=== PATIENT | male | born 1955 | race Caucasian/White ===

== ENCOUNTER → 2016-09-28 | Outpatient (CLI) | payer OTHER ==
--- NOTE | 2016-09-28 08:08 | CT ---
EXAMINATION TYPE: CT chest wo con DATE OF EXAM: 09/28/2016 7:21 AM COMPARISON: 03/19/2015 and 09/11/2014 HISTORY: 61-year-old male with SOB and Cough TECHNIQUE: Contiguous axial scanning of the chest without IV contrast. Coronal and sagittal reconstru ctions performed. CT DLP: 269.2 mGycm Automated exposure control for dose reduction was used. FINDINGS: Heart is normal size without pericardial effusion. Aorta is normal caliber with conventional arch vessel branching anatomy. Scattered nonenlarged mediastinal lymph nodes measuring up to 8 mm and are unchanged. Mild bilateral gynecomastia is noted. There is redemonstration of bullous emphysema with right apical pleural parenchymal scarring and olive tional irregular pulmonary scarring along the right upper to midlung with associated calcification, u nchanged from 09/11/2014. Also unchanged is the 3 mm right middle lobe pulmonary nodule compatible with a benign etiology. Mild diffuse bronchial wall thickening is noted. Small hiatal hernia. Visualized upper abdomen otherwise shows no gross abnormality. Bones: No osseous destructive process. IMPRESSION: 1. COPD WITH MARKED BULLOUS EMPHYSEMA REDEMONSTRATED. 2. PARTIALLY CALCIFIED SCARRING ALONG THE RIGHT UPPER TO MIDLUNG IS UNCHANGED FOR 2 YEARS IS THE 3 MM RIGHT MIDDLE LOBE PULMONARY NODULE SUGGESTING A BENIGN ETIOLOGY. 3. NO ACUTE PULMONARY PROCESS SEEN.
== END | disposition home or self-care (01) ==
LOC: RADCTMAIN 07:04
PROVIDERS: ATTEND Internal Medicine Pulmonary Disease
DX: J43.9 Emphysema, unspecified (principal); R91.1 Solitary pulmonary nodule
CPT/HCPCS: 71250

== ENCOUNTER → 2018-06-21 | Outpatient (CLI) | payer OTHER ==
--- NOTE | 2018-06-21 15:59 | XR ---
EXAMINATION TYPE: XR chest 2V DATE OF EXAM: 06/21/2018 COMPARISON: Prior chest CT 09/28/2016 HISTORY: Cough and shortness of breath TECHNIQUE: Frontal and lateral views of the chest are obtained. FINDINGS: Extensive emphysematous changes are present, there is apical scarring on the right. Eventr ation of the diaphragm is noted. Heart is small. No evident pneumothorax or pleural effusion. Pulmona ry vascularity and nury are within normal limits. IMPRESSION: Emphysema, no acute abnormalities evident.
== END ==
LOC: RADXRMAIN 09:58
PROVIDERS: ATTEND Internal Medicine Pulmonary Disease
DX: J43.9 Emphysema, unspecified (principal)
CPT/HCPCS: 71046

== ENCOUNTER → 2018-08-02 | Outpatient (CLI) | payer OTHER ==
--- NOTE | 2018-08-02 08:56 | CT ---
EXAMINATION TYPE: CT chest wo con DATE OF EXAM: 08/02/2018 COMPARISON: September 28, 2016 HISTORY: Shortness of breath CT DLP: [address] of the chest was performed with lung and mediastinal window settings submitted. The la ck of contrast limits evaluation of the vascular, mediastinal and parenchymal structures including th e upper abdomen. LUNGS: There is redemonstration of bullous emphysema with right apical pleural parenchymal scarring a nd additional irregular pulmonary scarring along the right upper to midlung with associated calcifica tion, unchanged from 09/11/2014. Also unchanged is the 3 mm right middle lobe pulmonary nodule compatib le with a benign etiology. Mild diffuse bronchial wall thickening is noted. MEDIASTINUM/ANT: Thoracic aorta is of normal caliber with limited evaluation given lack of contrast . The heart is not enlarged. No evidence for mediastinal mass. No lymph nodes greater than 1cm. UPPER ABDOMEN: No significant abnormality is seen. OTHER: No significant other abnormality. IMPRESSION: 1. Severe bullous emphysema with COPD. 2. Calcified scarring right upper lobe midlung unchanged with stable pulmonary nodularity. No acute p rocess seen.
== END | disposition home or self-care (01) ==
LOC: RADCTMAIN 08:27
PROVIDERS: ATTEND Internal Medicine Pulmonary Disease
DX: J43.9 Emphysema, unspecified (principal); J98.4 Other disorders of lung
CPT/HCPCS: 71250

== ENCOUNTER 2018-11-06 11:06 | Inpatient (IN) | payer OTHER ==
[2018-11-06] MEDS ORDERED: RX INFO: IV CONTRAST WAS GIVEN 1 EACH MISC MISCELLANE PRN (16:15)
[2018-11-06] MEDS: methylPREDNISolone SOD SUCCI 125 MG/2 ML VIAL IV SCH ×2 (16:34→23:21)
[2018-11-06] MEDS: SODIUM CHLORIDE 0.9% 1,000 ML IV SCH (17:12)
[2018-11-06] MEDS ORDERED: IPRATROPIUM-ALBUTEROL 3 ML NEB INHALATION PRN (17:49)
--- NOTE | 2018-11-06 17:53 | P.CNPUL ---
History of Present Illness Consult date: 11/06/18 Reason for consult: dyspnea, COPD Chief complaint: shortness of breath History of present illness: This is a 63-year-old gentleman who was a direct admit from Dr. Hein's office complaining of shortness of breath, feeling tired, feeling like his heart is racing. History is difficult to obtain from the patient. He appears depressed and states that he feels like there is nothing that can be done for him. He is asking if there is anything that he can do to make his breathing better. We discussed nebulizer treatments as well as evaluation outpatient for lung volume reduction surgery. The patient states "that is all too much for my body." He is also upset because a computed tomography scan is ordered and he states again "it is too much for my body." The patient does have a Ventolin inhaler that he states he uses multiple times throughout the day. He states he knows using it that much is not good for him. It is unclear if he is using any other inhalers at this time. He keeps repeating "it is too much for my body." The patient is a current every day smoker. He had a computed tomography scan done in 2018 which shows severe bullous emphysema. The patient's last pulmonary function test was done in 2016. It showed severe COPD with an FEV1 51% of predicted. The patient has declined repeat testing since that time. Influenza is negative. The patient is afebrile. O2 saturation is 96% on room air. Review of Systems All systems: negative Past Medical History Past Medical History: COPD History of Any Multi-Drug Resistant Organisms: None Reported Past Surgical History: No Surgical Hx Reported Past Anesthesia/Blood Transfusion Reactions: No Reported Reaction Past Psychological History: No Psychological Hx Reported Smoking Status: Current every day smoker Past Alcohol Use History: None Reported Past Drug Use History: None Reported - Past Family History Mother Family Medical History: Myocardial Infarction (MA) Medications and Allergies Home Medications Medication Instructions Recorded Confirmed Type Albuterol Inhaler [Ventolin Hfa 2 puff INHALATION RT-TID 11/06/18 11/06/18 History Inhaler] Atenolol [Tenormin] 50 mg PO DAILY 11/06/18 11/06/18 History Allergies Allergy/AdvReac Type Severity Reaction Status Date / Time No Known Allergies Allergy Verified 11/06/18 14:58 Physical Exam Osteopathic Statement: *. No significant issues noted on an osteopathic structural exam other than those noted in the History and Physical/Consult. Vitals: Vital Signs Temp Pulse Resp BP Pulse Ox 11/06/18 13:12 97.5 F L 87 20 126/84 96 Intake and Output 11/06/18 11/06/18 11/06/18 06:59 14:59 22:59 Other: Weight 71.668 kg Gen.: Patient is alert and oriented 3, no acute distress Cardiovascular: Regular rate and rhythm, S1/S2 Lungs: Diminished breath sounds bilaterally Abdomen: Soft nontender nondistended positive bowel sounds Extremities: No edema Assessment and Plan Assessment: Acute exacerbation of COPD, severe, FEV 1 51% of predicted Severe bullous emphysema Active tobacco abuse History of asbestos exposure Right upper lobe calcified scaring Pulmonary nodules which have been stable O2 to maintain saturation greater than or equal to 90% Pulmicort, Perforomist, brandi santillan Singulair Mucinex IgE/HP/allergy/A1AT Incentive spirometry and pulmonary hygiene Smoking cessation is highly recommended Outpatient pulmonary function test is recommended, patient may be a candidate for LVRS or transplant if he quits smoking Steroid taper CT of the chest Monitor labs Home O2 assessment prior to discharge Nocturnal oximetry tonight GI and DVT prophylaxis Thank you for this consultation we'll continue to follow along
[2018-11-06 18:05] LABS: Basophils # (A) 0.1 k/uL (0-0.2); Basophils % (A) 1 %; Eosinophils # (A) 0.2 k/uL (0-0.7); Eosinophils % (A) 3 %; HCT 48.7 % (39.0-53.0); HGB 15.6 gm/dL (13.0-17.5); Lymphocytes # (A) 1.7 k/uL (1.0-4.8); Lymphocytes % (A) 25 %; MCH 29.1 pg (25.0-35.0); MCV 90.8 fL (80.0-100.0); Mean Platelet Volume 7.5; Monocytes # (A) 0.4 k/uL (0-1.0); Monocytes % (A) 7 %; Neutrophils # (A) 4.1 k/uL (1.3-7.7); Neutrophils % (A) 62 %; Platelet Count 260 k/uL (150-450); RBC 5.37 m/uL (4.30-5.90); RDW 12.4 % (11.5-15.5); WBC 6.6 k/uL (3.8-10.6)
[2018-11-06 18:07] LABS: Albumin 3.9 g/dL (3.5-5.0); Calcium 9.5 mg/dL (8.4-10.2); Potassium 4.6 mmol/L (3.5-5.1); Total Bilirubin 0.6 mg/dL (0.2-1.3); Total Protein 6.8 g/dL (6.3-8.2)
[2018-11-06] MEDS: HEPARIN SODIUM,PORCINE 5,000 UNIT/ML 1 ML VIAL SQ SCH ×2 (18:15→23:21)
--- NOTE | 2018-11-06 19:06 | CT ---
EXAMINATION TYPE: CT chest w con DATE OF EXAM: 11/06/2018 COMPARISON: CT chest August 02, 2018 HISTORY: COPD and difficulty breathing. CT DLP: 217.8 mGycm. Automated Exposure Control for Dose Reduction was Utilized. TECHNIQUE: CT scan of the thorax is performed following with IV Contrast, patient injected with 100m l mL of Isovue 300. FINDINGS: LUNGS: Advanced emphysematous change most prominent in the lung apices is redemonstrated with large b jennifer present. There is right upper lung linear scarring again seen. No suspicious new consolidation o r groundglass opacity. No pleural effusion or pneumothorax. No suspicious nodules or masses. MEDIASTINUM: There are no greater than 1 cm hilar or mediastinal lymph nodes. Prominent but subcentim eter AP window lymph nodes axial image 27 are stable. No cardiomegaly or pericardial effusion is se en. Slight right-sided volume loss with mediastinal shift remains present. OTHER: Bilateral subareolar gynecomastia is again seen. Please refer to same day CT abdomen report fo r complete details and upper abdomen IMPRESSION: Moderate to advanced underlying emphysematous change without suspicious acute pulmonary p rocess. No significant change from recent CT.
--- NOTE | 2018-11-06 19:10 | CT ---
EXAMINATION TYPE: CT abdomen pelvis wo/w con DATE OF EXAM: 11/06/2018 COMPARISON: PET CT August 18, 2013 HISTORY: Abdominal pain. CT DLP: 837.3 mGycm, Automated Exposure Control for Dose Reduction was Utilized. CONTRAST: CT scan of the abdomen and pelvis is performed without oral and without and with IV Contrast, patient injected with 100ml mL of Isovue 300. FINDINGS: LUNG BASES: Please refer to same-day CT chest report. LIVER/GB: No significant abnormality is appreciated. PANCREAS: No significant abnormality is seen. SPLEEN: No significant abnormality is seen. ADRENALS: No significant abnormality is seen. KIDNEYS: No renal calculi on noncontrast CT. Postcontrast CT shows symmetric cortical medullary upta ke and excretion without hydronephrosis seen bilaterally. No intraluminal calculus in poorly distende d bladder BOWEL: Evaluation bowel is suboptimal secondary to lack of enteric contrast. There is no suspicious s mall or large bowel dilatation. Normal-appearing appendix is seen inferiorly from cecum. Some scatter ed diverticula in the left and sigmoid colon are present. No CT evidence for acute diverticulitis. PROSTATE/SEMINAL VESICLES: Mildly enlarged prostate gland consistent with BPH bulges on bladder base. Central calcifications are present. LYMPH NODES: No greater than 1cm abdominal or pelvic lymph nodes are appreciated. OSSEOUS STRUCTURES: Demineralization is present. There is mild disc space narrowing with vacuum disc phenomenon L3-L4 level. There is facet arthropathy lower lumbar levels. OTHER: There is mild to moderate calcific plaque of the aorta extending into branch vessels. There ar e small fat-containing right inguinal hernia coronal image 22. IMPRESSION: No significant acute finding is seen to account for patient's clinical symptoms on this study. No bowel obstruction is present.
[2018-11-06] MEDS: FAMOTIDINE 20 MG TAB PO SCH (20:07)
[2018-11-06] MEDS: MONTELUKAST 10 MG TAB PO SCH (20:08)
[2018-11-06] MEDS: guaiFENesin 600 MG TABLET.ER PO SCH (20:08)
[2018-11-06] MEDS: IPRATROPIUM-ALBUTEROL 3 ML NEB INHALATION SCH ×3 (20:58→21:09)
[2018-11-06] MEDS: BUDESONIDE 0.5 MG/2 ML NEBU INHALATION SCH (20:58)
[2018-11-06] MEDS: FORMOTEROL FUMARATE 20 MCG/2 ML NEBU INHALATION SCH (21:13)
[2018-11-07 00:06] LABS: Immunoglobulin E 40.6 IU/mL (0.00-114.00)
[2018-11-07 07:47] LABS: Basophils % (A) 0 %; Eosinophils % (A) 0 %; HCT 43.6 % (39.0-53.0); HGB 13.9 gm/dL (13.0-17.5); Lymphocytes # (A) 0.8 k/uL (1.0-4.8); Lymphocytes % (A) 10 %; MCH 28.7 pg (25.0-35.0); MCHC 31.9 g/dL (31.0-37.0); Monocytes # (A) 0.4 k/uL (0-1.0); Monocytes % (A) 6 %; Neutrophils # (A) 6.4 k/uL (1.3-7.7); Neutrophils % (A) 83 %; Platelet Count 244 k/uL (150-450); RBC 4.85 m/uL (4.30-5.90); RDW 12.3 % (11.5-15.5); WBC 7.7 k/uL (3.8-10.6)
[2018-11-07 07:56] LABS: Albumin 3.4 g/dL (3.5-5.0); Calcium 9.3 mg/dL (8.4-10.2); Potassium 4.7 mmol/L (3.5-5.1); Total Bilirubin 0.6 mg/dL (0.2-1.3)
[2018-11-07] MEDS: IPRATROPIUM-ALBUTEROL 3 ML NEB INHALATION SCH ×3 (08:16→19:22)
[2018-11-07] MEDS: FORMOTEROL FUMARATE 20 MCG/2 ML NEBU INHALATION SCH ×2 (08:16→19:22)
[2018-11-07] MEDS: BUDESONIDE 0.5 MG/2 ML NEBU INHALATION SCH ×2 (08:16→19:22)
[2018-11-07] MEDS: guaiFENesin 600 MG TABLET.ER PO SCH ×2 (08:51→23:59)
[2018-11-07] MEDS: ATENOLOL 50 MG TAB PO SCH (08:51)
[2018-11-07] MEDS: FAMOTIDINE 20 MG TAB PO SCH (08:51)
[2018-11-07] MEDS: methylPREDNISolone SOD SUCCI 125 MG/2 ML VIAL IV SCH ×2 (08:51→15:54)
[2018-11-07] MEDS: HEPARIN SODIUM,PORCINE 5,000 UNIT/ML 1 ML VIAL SQ SCH ×2 (08:52→15:53)
[2018-11-07] MEDS: PANTOPRAZOLE 40 MG TABLET PO SCH (08:55)
[2018-11-07] MEDS: SODIUM CHLORIDE 0.9% 1,000 ML IV SCH ×2 (08:56→22:03)
[2018-11-07 10:40] VITALS: BMI 22.3
[2018-11-07] MEDS ORDERED: PEG 3350-NA SULF,BICARB,CL/KCL 4,000 ML BOTTLE PO ONE (12:21)
--- NOTE | 2018-11-07 13:17 | P.GSCN ---
History of Present Illness Consult date: 11/07/18 Reason for Consult: Nausea, anorexia, requesting EGD colonoscopy Requesting physician: Og Hein History of present illness: CHIEF COMPLAINT: Nausea, anorexia, EGD/colonoscopy HISTORY OF PRESENT ILLNESS: 63-year-old male who was directly admitted from Dr. Hein's office yesterday secondary to COPD. Dr. Hein consulted general surgery for request to have EGD/colonoscopy completed. Patient examined at the bedside. Denies heartburn or epigastric pain. He currently denies abdominal pain. He does report that he was having some generalized abdominal pain a few days ago, but it resolved after he had a bowel movement. Denies n ausea or vomiting. Denies diarrhea or constipation. Patient states for the last 10 days or so he hasn't been eating except a few bites here and there. Patient states "I just didn't feel like. I cant believe I took this healthy body and ruined it by smoking". Patient appears very depressed about his overall health and states "this is just my luck that I'm ending up this way'. Patient denies previous history of EGD or colonoscopy. PAST MEDICAL HISTORY: See list. PAST SURGICAL HISTORY: See list. SOCIAL HISTORY: No illicit drug use. REVIEW OF SYSTEMS: CONSTITUTIONAL: Denies fever or chills. HEENT: Denies blurred vision, vision changes, or eye pain. Denies hemoptysis CARDIOVASCULAR: Denies chest pain or pressure. RESPIRATORY: Reports shortness of breath GASTROINTESTINAL: Refer to HPI for pertinent findings HEMATOLOGIC: Denies bleeding disorders. GENITOURINARY: Denies any blood in urine. SKIN: Denies pruitis. Denies rash. PHYSICAL EXAM: VITAL SIGNS: Reviewed. GENERAL: Well-developed in no acute distress. HEENT: No sclera icterus. Extraocular movements grossly intact. Moist buccal mucosa. Head is atraumatic, normocephalic. ABDOMEN: Soft. Nondistended. Nontender. NEUROLOGIC: Alert and oriented. Cranial nerves II through XII grossly intact. Appears depressed. IMAGING: CT abdomen and pelvis: No significant acute finding is seen. No bowel obstruction. Some scattered diverticula in the left and sigmoid colon are present. No evidence of acute diverticulitis. ASSESSMENT: 1. Isolated episode of abdominal pain, resolved with bowel movement 2. Anorexia, patient reports he stopped eating about 10 days ago PLAN: Clear liquid diet this afternoon. NPO after midnight Patient to undergo EGD/colonoscopy tomorrow with Dr. Arce Recommend further evaluation of depression. Will defer to medicine. The above dictated assessment and findings were discussed with Dr. Arce. The impression and plan of care have been directed as dictated. Penny Kruse, nurse practitioner, acting as a scribe for Dr. Arce. Past Medical History Past Medical History: COPD History of Any Multi-Drug Resistant Organisms: None Reported Past Surgical History: No Surgical Hx Reported Past Anesthesia/Blood Transfusion Reactions: No Reported Reaction Past Psychological History: No Psychological Hx Reported Smoking Status: Current every day smoker Past Alcohol Use History: None Reported Past Drug Use History: None Reported - Past Family History Mother Family Medical History: Myocardial Infarction (MA) Medications and Allergies Home Medications Medication Instructions Recorded Confirmed Type Albuterol Inhaler [Ventolin Hfa 2 puff INHALATION RT-TID 11/06/18 11/06/18 History Inhaler] Atenolol [Tenormin] 50 mg PO DAILY 11/06/18 11/06/18 History Allergies Allergy/AdvReac Type Severity Reaction Status Date / Time No Known Allergies Allergy Verified 11/06/18 14:58 Surgical - Exam Vital Signs Temp Pulse Resp BP Pulse Ox 97.5 F L 87 20 126/84 96 11/06/18 13:12 11/06/18 13:12 11/06/18 13:12 11/06/18 13:12 11/06/18 13:12 Results - Labs 11/07/18 07:21 11/07/18 07:21 Abnormal Lab Results - Last 24 Hours (Table) 11/06/18 11/07/18 11/07/18 Range/Units 17:22 07:21 07:21 Lymphocytes # 0.8 L (1.0-4.8) k/uL Chloride 108 H (98-107) mmol/L Creatinine 1.39 H (0.66-1.25) mg/dL Glucose 111 H (74-99) mg/dL AST 14 L (17-59) U/L ALT 17 L (21-72) U/L Total Protein 6.0 L (6.3-8.2) g/dL Albumin 3.4 L (3.5-5.0) g/dL Diabetes panel 11/06/18 11/07/18 Range/Units 17:22 07:21 Sodium 141 138 (137-145) mmol/L Potassium 4.6 4.7 (3.5-5.1) mmol/L Chloride 104 108 H (98-107) mmol/L Carbon Dioxide 27 22 (22-30) mmol/L BUN 20 18 (9-20) mg/dL Creatinine 1.39 H 1.06 (0.66-1.25) mg/dL Glucose 97 111 H (74-99) mg/dL Calcium 9.5 9.3 (8.4-10.2) mg/dL AST 18 14 L (17-59) U/L ALT 17 L 27 (21-72) U/L Alkaline Phosphatase 92 86 (38-126) U/L Total Protein 6.8 6.0 L (6.3-8.2) g/dL Albumin 3.9 3.4 L (3.5-5.0) g/dL Calcium panel 11/06/18 11/07/18 Range/Units 17:22 07:21 Calcium 9.5 9.3 (8.4-10.2) mg/dL Albumin 3.9 3.4 L (3.5-5.0) g/dL Pituitary panel 11/06/18 11/07/18 Range/Units 17:22 07:21 Sodium 141 138 (137-145) mmol/L Potassium 4.6 4.7 (3.5-5.1) mmol/L Chloride 104 108 H (98-107) mmol/L Carbon Dioxide 27 22 (22-30) mmol/L BUN 20 18 (9-20) mg/dL Creatinine 1.39 H 1.06 (0.66-1.25) mg/dL Glucose 97 111 H (74-99) mg/dL Calcium 9.5 9.3 (8.4-10.2) mg/dL Adrenal panel 11/06/18 11/07/18 Range/Units 17:22 07:21 Sodium 141 138 (137-145) mmol/L Potassium 4.6 4.7 (3.5-5.1) mmol/L Chloride 104 108 H (98-107) mmol/L Carbon Dioxide 27 22 (22-30) mmol/L BUN 20 18 (9-20) mg/dL Creatinine 1.39 H 1.06 (0.66-1.25) mg/dL Glucose 97 111 H (74-99) mg/dL Calcium 9.5 9.3 (8.4-10.2) mg/dL Total Bilirubin 0.6 0.6 (0.2-1.3) mg/dL AST 18 14 L (17-59) U/L ALT 17 L 27 (21-72) U/L Alkaline Phosphatase 92 86 (38-126) U/L Total Protein 6.8 6.0 L (6.3-8.2) g/dL Albumin 3.9 3.4 L (3.5-5.0) g/dL
--- NOTE | 2018-11-07 16:10 | PN ---
PROGRESS NOTE DATE OF SERVICE: 11/07/2018 This patient has been hemodynamically stable. He is less short of breath. On physical examination, blood pressure is 124/74, respiratory rate of 20, pulse rate 70, temperature 97.7. HEENT is unremarkable. Chest reveals prolonged exhalation. Cardiovascular system is in S1, S2. Abdomen is soft. There is no edema. IMPRESSION AT THIS TIME: 1. Acute exacerbation of chronic obstructive pulmonary disease with bullous emphysema. 2. Right upper lobe calcified scarring. 3. Abdominal pain, for which he is to undergo esophagogastroduodenoscopy and colonoscopy. Increase his activity level. Continue him on his current medications, which were reviewed. MMODL / IJN: [id number] /
--- NOTE | 2018-11-07 17:33 | HP ---
HISTORY AND PHYSICAL CHIEF COMPLAINT: 63-year-old who was admitted to the hospital with shortness of breath, lightheaded, dizziness, heart racing, near-syncope, and severe amount of weight loss over the past 3- 4 months, about 15 pounds. He says it is too much for his body, cannot live anymore. He is unable to eat any food, to keep any food down. He has got anorexic anorexia type symptoms and CT scan shows severe bullous emphysema. PAST MEDICAL HISTORY: Past medical history of COPD. SOCIAL HISTORY: Current everyday smoker. MEDICATIONS: Home medicines are Tenormin and Ritalin. ALLERGIES: No known drug allergies. PHYSICAL EXAMINATION: VITAL SIGNS: Vital signs - temp 97.5, pulse 80 to 87, respiratory 18-25, blood pressure 126/84, oxygen 96% on room air. Cardiac: Regular rate and rhythm. Neurologic: Alert and orient x3. PSYCH: Fair mood and affect. GI soft. Hematology negative Homans. ASSESSMENT: 1. Chronic obstructive pulmonary disease exacerbation. 2. Bullous emphysema. 3. Nicotine addiction. 4. History of asbestos exposure. 5. Acute weight loss. 6. Pulmonary nodules. Treated for COPD exacerbation. Get colonoscopy, EGD, CT of the abdomen, and chest has been done. MMODL / IJN: [id number] /
[2018-11-07] MEDS: MONTELUKAST 10 MG TAB PO SCH (23:59)
[2018-11-08] MEDS: HEPARIN SODIUM,PORCINE 5,000 UNIT/ML 1 ML VIAL SQ SCH ×3 (00:03→16:09)
[2018-11-08] MEDS ORDERED: LACTATED RINGERS 1,000 ML IV SCH (05:45)
[2018-11-08] MEDS: methylPREDNISolone SOD SUCCI 125 MG/2 ML VIAL IV SCH ×3 (07:49→16:09)
[2018-11-08] MEDS: SODIUM CHLORIDE 0.9% 1,000 ML IV SCH (07:51)
[2018-11-08] MEDS: IPRATROPIUM-ALBUTEROL 3 ML NEB INHALATION SCH ×2 (08:43→12:52)
[2018-11-08] MEDS: FORMOTEROL FUMARATE 20 MCG/2 ML NEBU INHALATION SCH (08:43)
[2018-11-08] MEDS: BUDESONIDE 0.5 MG/2 ML NEBU INHALATION SCH (08:43)
[2018-11-08] MEDS: ATENOLOL 50 MG TAB PO SCH (08:59)
[2018-11-08] MEDS: PANTOPRAZOLE 40 MG TABLET PO SCH (08:59)
[2018-11-08] MEDS: guaiFENesin 600 MG TABLET.ER PO SCH (08:59)
[2018-11-08 11:47] VITALS: BP 135/86; PULSE 60; TEMP 98.1
--- NOTE | 2018-11-08 12:11 | P.PN ---
Subjective Progress Note Date: 11/08/18 11/08/2017: Patient seen and examined. Patient is ambulating from the bathroom to his bed. He does have conversational dyspnea. He states he is not doing well and feels like he is going to . He has a lot of anxiety about his EGD and colonoscopy today. He states he is not sure he will with through it because he really can't breathe. The patient is currently 95% on room air. We do discuss outpatient pulmonary rehab. Objective - Vital Signs Vital signs: Vital Signs Temp 98.1 F 11/08/18 11:46 Pulse 60 11/08/18 11:46 Resp 17 11/08/18 11:46 BP 135/86 11/08/18 11:46 Pulse Ox 95 11/08/18 11:46 Intake & Output 11/07/18 11/08/18 11/08/18 18:59 06:59 18:59 Intake Total 1000 0 Output Total 450 Balance 550 0 Weight 70.624 kg Intake: Intake, IV Titration 600 Amount Sodium Chloride 0.9% 1, 600 000 ml @ 75 mls/hr IV . [id number] [facility] Rx#:[id number] Oral 400 0 Output: Stool 450 Other: Voiding Method Toilet Toilet Toilet # Voids 2 3 # Bowel Movements 4 - Exam Gen.: Patient is alert and oriented 3, no acute distress Cardiovascular: Regular rate and rhythm, S1/S2 Lungs: Diminished breath sounds bilaterally Abdomen: Soft nontender nondistended positive bowel sounds Extremities: No edema - Labs CBC & Chem 7: 11/07/18 07:21 11/07/18 07:21 Labs: Microbiology - Last 24 Hours (Table) 11/07/18 20:23 Stool Culture - Preliminary Stool Assessment and Plan Assessment: Acute exacerbation of COPD, severe, FEV 1 51% of predicted Severe bullous emphysema Active tobacco abuse History of asbestos exposure Right upper lobe calcified scaring Pulmonary nodules which have been stable IgE 40 O2 to maintain saturation greater than or equal to 90% Pulmicort, Perforomist, brandi santillan Singbradenir Mucinex Pending HP/allergy/A1AT Incentive spirometry and pulmonary hygiene Smoking cessation is highly recommended Outpatient pulmonary function test is recommended, patient may be a candidate for LVRS or transplant if he quits smoking Steroid taper CT of the chest reviewed and discussed with the patient Monitor labs Home O2 assessment prior to discharge Consult social work and psychiatry Outpatient pulmonary rehab Consult PT and OT GI and DVT prophylaxis Discharge planning from pulmonary standpoint.
[2018-11-08] MEDS ORDERED: PROPOFOL 10 MG/ML 20 ML VIAL IV ONE (14:16)
[2018-11-08] MEDS ORDERED: LACTATED RINGERS 1,000 ML IV ONE (14:25)
[2018-11-08 15:19] VITALS: RESP 18
--- NOTE | 2018-11-08 15:34 | PN ---
PROGRESS NOTE SUBJECTIVE: A 63-year-old white male with COPD exacerbation, waiting for endoscopy, EGD and colonoscopy for abdominal pain, weight loss, bleeding is improved. CARDIOVASCULAR: S1-S2. Lungs show decreased breath sounds, scattered wheeze. HEMATOLOGY: Negative Homans. ASSESSMENT: 1. Weight loss. 2. Chronic obstructive pulmonary disease exacerbation. EGD, colonoscopy. Wean steroids. Possible discharge home post endoscopy. MMODL / IJN: [id number] /
--- NOTE | 2018-11-08 15:39 | P.OP ---
Date of Procedure: 11/08/18 Preoperative Diagnosis: Weight loss Dysphagia Screening colonoscopy Postoperative Diagnosis: History gastritis Hiatal hernia Mild esophagitis Diverticulosis Sigmoid colon polyp Procedure(s) Performed: EGD Colonoscopy Anesthesia: MAC Surgeon: Darwin Arce Pathology: other (Antrum, esophagus, sigmoid colon polyp) Condition: stable Disposition: PACU Description of Procedure: The patient's placed on the endoscopy table lateral position. He received IV sedation. The gastroscope placed oropharynx passed in the esophagus and into the stomach. Scope was then placed through the pylorus. The first and second portion of the duodenum appeared normal. Scope was then brought back the antrum and this appeared minimally inflamed a biopsies performed. The scope was then retroflexed and there was a mild hiatal hernia seen. The GE junction was at 47 is. The distal esophagus appeared inflamed a biopsies performed. The proximal esophagus appeared normal. Scope was then brought back back and withdrawn for patient. Next digital rectal exam was performed which revealed no abnormalities. Flex ible colonoscope was then placed patient anus and passed throughout the entire colon. The ileocecal valve sutures. The cecum ascending and transverse colon appeared normal. In the descending and sigmoid colon there is mild diverticular changes. In the sigmoid colon there is a polyp seen this removed with a cold forcep. Scope was then brought back the rectum and this appeared normal. Scope withdrawn for patient.
== END 2018-11-08 16:42 | disposition home or self-care (01) | DRG 192 ==
LOC: 3NMEDONC 12:44
PROVIDERS: ADMIT Family Medicine; ATTEND Family Medicine
PROC: 0DBN8ZX Excision of Sigmoid Colon, Via Natural or Artificial Opening Endoscopic, Diagnostic (ICD-10-PCS; 2018-11-08)
PROC: 0DB38ZX Excision of Lower Esophagus, Via Natural or Artificial Opening Endoscopic, Diagnostic (ICD-10-PCS; principal; 2018-11-08 14:15)
PROC: 0DB78ZX Excision of Stomach, Pylorus, Via Natural or Artificial Opening Endoscopic, Diagnostic (ICD-10-PCS; 2018-11-08 14:15)
DX: J43.9 Emphysema, unspecified (principal); R13.10 Dysphagia, unspecified; K57.30 Diverticulosis of large intestine without perforation or abscess without bleeding; K44.9 Diaphragmatic hernia without obstruction or gangrene; K20.9 Esophagitis, unspecified; D12.5 Benign neoplasm of sigmoid colon; F41.9 Anxiety disorder, unspecified; F32.9 Major depressive disorder, single episode, unspecified; R63.0 Anorexia; R91.8 Other nonspecific abnormal finding of lung field; R63.4 Abnormal weight loss; F17.200 Nicotine dependence, unspecified, uncomplicated; Z71.6 Tobacco abuse counseling; Z79.899 Other long term (current) drug therapy; Z77.090 Contact with and (suspected) exposure to asbestos; Z87.19 Personal history of other diseases of the digestive system; Z82.49 Family history of ischemic heart disease and other diseases of the circulatory system
CPT/HCPCS: 43239; 45380; 71260; 74178; 80053; 82103; 82272; 82785; 83690; 85025; 86001; 86606; 86609; 87045; 87046; 87502; 93005; 94640; 94760; 94762

== ENCOUNTER 2018-11-21 05:19 | Emergency (ER) | payer OTHER ==
--- NOTE | 2018-11-21 05:34 | ED ---
SOB HPI - General Source: patient Mode of arrival: ambulatory Limitations: no limitations <Gifty Fournier - Last Filed: 11/21/18 07:36> <Raul Hilario - Last Filed: 11/21/18 08:27> - General Chief Complaint: Shortness of Breath Stated Complaint: JUANY Hx COPD Time Seen by Provider: 11/21/18 05:34 - History of Present Illness Initial Comments: Valentino is a 63-year-old gentleman with a history of COPD and recent history of chronic constipation loss of appetite decreased oral intake. Patient reports that over the past weeks he's been experiencing persistent constant shortness of breath as well as complete loss of appetite, nausea, not eating and has had persistent diarrhea. Patient has undergone a very thorough workup for this including being evaluated by gastroenterology having an endoscopy, colonoscopy and testing for multiple autoimmune inflammatory disorders as well as infectious disease. So far the workup has been negative. Despite this patient continues to have persistent symptoms. Patient reports that he hasn't had any food since his last admission and they just feels that he can't eat. When asked to elaborate on this patient becomes very frustrated he states he just can't eat. He states that he try to cut all the foods he used to like nothing tastes right. Again when asked to elaborate what he means by can't eat patient is not able say whether sitting can't swallow or doesn't like the food or whether he feels nauseated he just reports that he can get himself to eat. (Gifty Fournier) - Related Data Home Medications Medication Instructions Recorded Confirmed Albuterol Inhaler [Ventolin Hfa 2 puff INHALATION RT-TID 11/06/18 11/21/18 Inhaler] Atenolol [Tenormin] 50 mg PO DAILY 11/06/18 11/21/18 Previous Rx's Medication Instructions Recorded Ipratropium-Albuterol Nebulize 3 ml INHALATION RT-TID ampul.neb 11/08/18 [Duoneb 0.5 mg-3 mg/3 ml Soln] Azithromycin [Zithromax Z-pack] 0 mg PO DIRECTED #6 tab 11/21/18 methylPREDNISolone Dose Pack 4 mg PO DIRECTED #21 package 11/21/18 [Medrol Dose Pack] Allergies Allergy/AdvReac Type Severity Reaction Status Date / Time No Known Allergies Allergy Verified 11/21/18 07:51 Review of Systems ROS Other: All systems not noted in ROS Statement are negative. <Gifty Fournier P - Last Filed: 11/21/18 07:36> ROS Other: All systems not noted in ROS Statement are negative. <Raul Hilario - Last Filed: 11/21/18 08:27> ROS Statement: Those systems with pertinent positive or pertinent negative responses have been documented in the HPI. Past Medical History Past Medical History: COPD History of Any Multi-Drug Resistant Organisms: None Reported Past Surgical History: No Surgical Hx Reported Past Anesthesia/Blood Transfusion Reactions: No Reported Reaction Past Psychological History: No Psychological Hx Reported Smoking Status: Former smoker Past Alcohol Use History: None Reported Past Drug Use History: None Reported - Past Family History Mother Family Medical History: Myocardial Infarction ([place]) <Gifty Fournier P - Last Filed: 11/21/18 07:36> General Exam Limitations: no limitations <Gifty Fournier P - Last Filed: 11/21/18 07:36> Course Vital Signs 11/21/18 11/21/18 11/21/18 05:23 06:10 06:20 Temperature 97.6 F Pulse Rate 91 71 68 Respiratory 22 Rate Blood Pressure 130/83 O2 Sat by Pulse 97 Oximetry 11/21/18 11/21/18 11/21/18 07:00 07:30 08:00 Temperature Pulse Rate 70 62 Respiratory 19 14 Rate Blood Pressure 130/95 137/88 138/84 O2 Sat by Pulse 96 Oximetry Medical Decision Making - Lab Data Result diagrams: 11/21/18 05:51 11/21/18 05:51 - EKG Data -: EKG Interpreted by Wy <Gifty Fournier P - Last Filed: 11/21/18 07:36> - Lab Data Result diagrams: 11/21/18 05:51 11/21/18 05:51 <Raul Hilario - Last Filed: 11/21/18 08:27> - Medical Decision Making Patient reevaluated after sign out, resting comfortably, stable vital signs. No new complaints. Workup is reviewed in the emergency department laboratory studies are unremarkable with the exception elevated d-dimer. CT angiography was performed, this was negative for pulmonary embolism, did show concern for possible pneumonitis, atelectasis versus pneumonia. Patient denies any cough or fever. There is also question of mass in the lingula and changes consistent with emphysema. Patient has been following with pulmonology regarding these ab normalities. He will continue to monitor symptoms. (Raul Hilario) - Lab Data Lab Results 11/21/18 11/21/18 11/21/18 Range/Units 05:51 05:51 05:51 WBC 7.6 (3.8-10.6) k/uL RBC 5.31 (4.30-5.90) m/uL Hgb 15.8 (13.0-17.5) gm/dL Hct 47.3 (39.0-53.0) % MCV 89.1 (80.0-100.0) fL MCH 29.8 (25.0-35.0) pg MCHC 33.4 (31.0-37.0) g/dL RDW 12.9 (11.5-15.5) % Plt Count 310 (150-450) k/uL Neutrophils % 70 % Lymphocytes % 19 % Monocytes % 5 % Eosinophils % 4 % Basophils % 1 % Neutrophils # 5.3 (1.3-7.7) k/uL Lymphocytes # 1.5 (1.0-4.8) k/uL Monocytes # 0.4 (0-1.0) k/uL Eosinophils # 0.3 (0-0.7) k/uL Basophils # 0.1 (0-0.2) k/uL PT 11.1 (9.0-12.0) sec INR 1.0 (<1.2) APTT 24.2 (22.0-30.0) sec D-Dimer 1.23 H (<0.60) mg/L FEU Sodium 140 (137-145) mmol/L Potassium 4.0 (3.5-5.1) mmol/L Chloride 107 (98-107) mmol/L Carbon Dioxide 23 (22-30) mmol/L Anion Gap 10 mmol/L BUN 15 (9-20) mg/dL Creatinine 1.24 (0.66-1.25) mg/dL Est GFR (CKD-EPI)AfAm 71 (>60 ml/min/1.73 sqM) Est GFR (CKD-EPI)NonAf 61 (>60 ml/min/1.73 sqM) Glucose 110 H (74-99) mg/dL Calcium 9.6 (8.4-10.2) mg/dL Magnesium 2.1 (1.6-2.3) mg/dL Total Bilirubin 0.8 (0.2-1.3) mg/dL AST 20 (17-59) U/L ALT 27 (21-72) U/L Alkaline Phosphatase 103 (38-126) U/L Troponin I (0.000-0.034) ng/mL NT-Pro-B Natriuret Pep pg/mL Total Protein 6.9 (6.3-8.2) g/dL Albumin 4.0 (3.5-5.0) g/dL 11/21/18 11/21/18 Range/Units 05:51 05:51 WBC (3.8-10.6) k/uL RBC (4.30-5.90) m/uL Hgb (13.0-17.5) gm/dL Hct (39.0-53.0) % MCV (80.0-100.0) fL MCH (25.0-35.0) pg MCHC (31.0-37.0) g/dL RDW (11.5-15.5) % Plt Count (150-450) k/uL Neutrophils % % Lymphocytes % % Monocytes % % Eosinophils % % Basophils % % Neutrophils # (1.3-7.7) k/uL Lymphocytes # (1.0-4.8) k/uL Monocytes # (0-1.0) k/uL Eosinophils # (0-0.7) k/uL Basophils # (0-0.2) k/uL PT (9.0-12.0) sec INR (<1.2) APTT (22.0-30.0) sec D-Dimer (<0.60) mg/L FEU Sodium (137-145) mmol/L Potassium (3.5-5.1) mmol/L Chloride (98-107) mmol/L Carbon Dioxide (22-30) mmol/L Anion Gap mmol/L BUN (9-20) mg/dL Creatinine (0.66-1.25) mg/dL Est GFR (CKD-EPI)AfAm (>60 ml/min/1.73 sqM) Est GFR (CKD-EPI)NonAf (>60 ml/min/1.73 sqM) Glucose (74-99) mg/dL Calcium (8.4-10.2) mg/dL Magnesium (1.6-2.3) mg/dL Total Bilirubin (0.2-1.3) mg/dL AST (17-59) U/L ALT (21-72) U/L Alkaline Phosphatase (38-126) U/L Troponin I <0.012 (0.000-0.034) ng/mL NT-Pro-B Natriuret Pep 148 pg/mL Total Protein (6.3-8.2) g/dL Albumin (3.5-5.0) g/dL - EKG Data EKG Comments: EKG was obtained at 5:39 AM, rate of 76 rhythm is sinus there is normal axis there are normal intervals, HI 132, QRS 74, QTC is 427 there are no acute ST elevations or depressions there is no evidence of acute anemia or infarction. (Gifty Fournier) Disposition <Gifty Fournier - Last Filed: 11/21/18 07:36> Is patient prescribed a controlled substance at d/c from ED?: No Time of Disposition: 08:26 <Raul Hilario - Last Filed: 11/21/18 08:27> Clinical Impression: COPD (chronic obstructive pulmonary disease), Chronic diarrhea Disposition: HOME SELF-CARE Condition: Fair Instructions (If sedation given, give patient instructions): Chronic Diarrhea (ED), COPD (Chronic Obstructive Pulmonary Disease) (ED) Prescriptions: methylPREDNISolone Dose Pack [Medrol Dose Pack] 4 mg PO DIRECTED #21 package Azithromycin [Zithromax Z-pack] 0 mg PO DIRECTED #6 tab Referrals: Og Hein MD [Primary Care Provider] - 1-2 days Pedrito Camara MD [STAFF PHYSICIAN] - 1-2 days
[2018-11-21] MEDS ORDERED: IPRATROPIUM-ALBUTEROL 3 ML NEB INHALATION STA (05:51)
[2018-11-21] MEDS ORDERED: SODIUM CHLORIDE 0.9% 1,000 ML IV STA (05:51)
[2018-11-21 06:01] LABS: Basophils # (A) 0.1 k/uL (0-0.2); Basophils % (A) 1 %; Eosinophils # (A) 0.3 k/uL (0-0.7); Eosinophils % (A) 4 %; HCT 47.3 % (39.0-53.0); HGB 15.8 gm/dL (13.0-17.5); Lymphocytes # (A) 1.5 k/uL (1.0-4.8); Lymphocytes % (A) 19 %; MCH 29.8 pg (25.0-35.0); MCHC 33.4 g/dL (31.0-37.0); MCV 89.1 fL (80.0-100.0); Mean Platelet Volume 8.1; Monocytes # (A) 0.4 k/uL (0-1.0); Monocytes % (A) 5 %; Neutrophils # (A) 5.3 k/uL (1.3-7.7); Neutrophils % (A) 70 %; Platelet Count 310 k/uL (150-450); RBC 5.31 m/uL (4.30-5.90); RDW 12.9 % (11.5-15.5); WBC 7.6 k/uL (3.8-10.6)
[2018-11-21 06:11] LABS: Calcium 9.6 mg/dL (8.4-10.2); Magnesium 2.1 mg/dL (1.6-2.3); Total Bilirubin 0.8 mg/dL (0.2-1.3); Total Protein 6.9 g/dL (6.3-8.2)
[2018-11-21 06:14] LABS: Partial Thromboplastin Time 24.2 sec (22.0-30.0); Prothrombin Time 11.1 sec (9.0-12.0)
[2018-11-21 06:26] LABS: D-Dimer 1.23 mg/L FEU (<0.60)
--- NOTE | 2018-11-21 06:30 | XR ---
EXAM: XR Chest, 2 Views CLINICAL HISTORY: ITS.REASON XR Reason: difficulty breathing TECHNIQUE: Frontal and lateral views of the chest. COMPARISON: 06/21/18 FINDINGS: Lungs: Slight increased streaky densities in the right lower lung and left lung base which may reflect developing atelectasis. Follow-up recommended to exclude early infiltrate. Redemonstration of hyperinflation and coarse lung markings in the right upper lobe. Pleural space: Unremarkable. No pneumothorax. Heart: Unremarkable. No cardiomegaly. Mediastinum: Unremarkable. Bones/joints: Unremarkable. Vasculature: Mildly tortuous thoracic aorta. Tubes, lines and devices: Overlying chest leads obscure portion of the chest. Other findings: IMPRESSION: Atelectasis versus early infiltrate in both lower lobes. Emphysematous changes and chronic scarring in the right apex
--- NOTE | 2018-11-21 08:06 | CT ---
CT CHEST FOR PULMONARY EMBOLISM. EXAMINATION TYPE: CT chest angio for PE DATE OF EXAM: 11/21/2018 INDICATION: PE, SOB and elevated d-dimer CT DLP: 238.5 mGycm, Automated exposure control for dose reduction was used. CONTRAST: Patient injected with 100 ml mL of Isovue 370. COMPARISON: 11/06/2018 TECHNIQUE: CT of the chest is performed on a spiral scan at 2 mm thick sections. Study is performed with intravenous contrast timed for evaluation for pulmonary embolism. This will limit additional po rtions of the evaluation. 3-D MIP images reconstructed by the technologist are reviewed on the compu ter in the coronal and sagittal planes. FINDINGS: No persistent filling defects are evident to suggest an acute pulmonary embolism. There is a 1.0 cm lymph node at the aortopulmonic window. A few additional shotty lymph nodes are pre sent. The ascending aorta diameter at the level of the main pulmonary artery is 3.6 cm. The main pu lmonary artery diameter at the bifurcation is 2.3 cm. Extensive emphysematous changes are present with multiple blebs and bulla. There is some diffuse thic kening through the right upper lung field which appears to be some scarring. An azygos fissure is angelito ntified. There is some focal infiltrate in the periphery of the right middle lobe. Series 306 image 105. This is nonspecific but new from 11/06/2018. Atelectasis and pneumonia could be considered. There is some fo mauro atelectasis or density at the lingular base. Series 306 image 128. Atelectasis, pneumonia, or sanaz plasm could be considered at this location. Thickening or scarring is at the posterior right apex. Ex ample image [address] section through the upper abdomen are unremarkable. IMPRESSIONS: 1. No acute pulmonary embolism. 2. Advanced emphysematous changes. 3. Areas of pneumonitis within the periphery of the right middle lobe and at the lingular base. Diffe rential diagnosis would include atelectasis and pneumonia. Underlying neoplasm is not excluded at the lingular base. 4. Some thickening felt to represent some scarring from emphysematous changes at the right apex. Neop lasm cannot be excluded at this time
[2018-11-21 08:41] VITALS: BP 128/93; PULSE 71; RESP 20; TEMP 97.5
--- NOTE | 2018-11-22 04:41 | CDI ---
Dear Raul Hilario MD: Please do addendum Physical Examination. Thank you, Constantine Escamilla, It Auditor. If you have any questions, please contact [employer] Worker at [phone]. [facility]
== END 2018-11-21 08:41 | disposition home or self-care (01) ==
LOC: EC 05:19
DX: J44.9 Chronic obstructive pulmonary disease, unspecified (principal); K52.9 Noninfective gastroenteritis and colitis, unspecified; R79.1 Abnormal coagulation profile; R91.8 Other nonspecific abnormal finding of lung field; R63.0 Anorexia; R11.0 Nausea; Z87.891 Personal history of nicotine dependence; Z79.899 Other long term (current) drug therapy; Z82.49 Family history of ischemic heart disease and other diseases of the circulatory system
CPT/HCPCS: 99285; 96360; 36415; 94640; 93005; 85379; 83880; 80053; 83735; 84484; 85025; 85610; 85730; 71046; 71275; Q9967

== ENCOUNTER 2023-10-24 10:23 | Inpatient (IN) | payer MEDICARE, OTHER ==
--- NOTE | 2023-10-24 10:57 | ED ---
General Adult HPI - General Chief complaint: GI Bleed Stated complaint: Weakness Time Seen by Provider: 10/24/23 10:25 Source: patient, EMS, RN notes reviewed Mode of arrival: EMS Limitations: physical limitation - History of Present Illness Initial comments: Is a 68-year-old male presents emergency department via EMS for chief complaint of weakness. Patient states that he has not gotten up out of his chair in several weeks he states has not been eating or drinking. Patient was initially getting food brought to him. Patient's friend came to do a well check on him today and family is so weak and he was covered in stool that he called EMS. Patient states he was having some abdominal pain states he just had a large amount of diarrhea. He states it is very dark in color. He states that he has COPD he has been short of breath for the last 5 years as he refused to go to any physicians after he received the same answer time after time regarding his shortness of breath. Patient states that he has kidney disease, diabetes. He states has not been on medication for a long period of time. - Related Data Home Medications Medication Instructions Recorded Confirmed No Known Home Medications 10/24/23 10/24/23 Allergies Allergy/AdvReac Type Severity Reaction Status Date / Time No Known Allergies Allergy Verified 10/24/23 11:40 Review of Systems ROS Statement: Those systems with pertinent positive or pertinent negative responses have been documented in the HPI. ROS Other: All systems not noted in ROS Statement are negative. Past Medical History Past Medical History: COPD History of Any Multi-Drug Resistant Organisms: None Reported Past Surgical History: No Surgical Hx Reported Past Anesthesia/Blood Transfusion Reactions: No Reported Reaction Past Psychological History: No Psychological Hx Reported Smoking Status: Former smoker Past Alcohol Use History: None Reported Past Drug Use History: None Reported - Past Family History Mother Family Medical History: Myocardial Infarction ([place]) General Exam Limitations: no limitations General appearance: alert, in no apparent distress Head exam: Present: atraumatic, normocephalic, normal inspection Eye exam: Present: normal appearance, PERRL, EOMI. Absent: scleral icterus, conjunctival injection, periorbital swelling ENT exam: Present: mucous membranes dry. Absent: normal exam, normal oropharynx, mucous membranes moist Neck exam: Present: normal inspection, full ROM. Absent: tenderness, meningismus, lymphadenopathy Respiratory exam: Present: normal lung sounds bilaterally. Absent: respiratory distress, wheezes, rales, rhonchi, stridor Cardiovascular Exam: Present: normal rhythm, tachycardia, normal heart sounds. Absent: systolic murmur, diastolic murmur, rubs, gallop, clicks GI/Abdominal exam: Present: soft, tenderness (Normal), normal bowel sounds. Absent: distended, guarding, rebound, rigid Neurological exam: Present: alert, oriented X3 Skin exam: Present: warm, dry, intact, normal color. Absent: rash Course Vital Signs 10/24/23 10/24/23 10/24/23 10:25 10:38 11:34 Temperature Pulse Rate 54 L 135 H 135 H Respiratory 17 19 Rate Blood Pressure 97/71 100/61 104/68 O2 Sat by Pulse 94 L 98 94 L Oximetry 10/24/23 10/24/23 10/24/23 12:00 13:00 13:20 Temperature Pulse Rate 105 H 94 113 H Respiratory 19 20 15 Rate Blood Pressure 115/97 115/97 119/106 O2 Sat by Pulse 95 93 L 100 Oximetry 10/24/23 13:30 Temperature 97.3 F L Pulse Rate Respiratory Rate Blood Pressure O2 Sat by Pulse Oximetry EKG Findings - EKG Comments: EKG Findings:: EKG performed at 11: 42 sinus tach with a rate of 133 QRS 83 QT/QTc 276/354 - EKG Results: EKG: interpreted by RADHA Medical Decision Making - Medical Decision Making Was pt. sent in by a medical professional or institution (, PA, CONCRETE CRUSHER LOADER OPERATOR, urgent care, hospital, or fpc...) When possible be specific @ -No Did you speak to anyone other than the patient for history (EMS, parent, family, police, friend...)? What history was obtained from this source @ -Family and EMS providing past medical history Did you review nursing and triage notes (agree or disagree)? Why? @ -I reviewed and agree with nursing and triage notes Were old charts reviewed (outside hosp., previous admission, EMS record, old EKG, old radiological studies, urgent care reports/EKG's, fpc records)? Report findings @ -No old charts were reviewed Differential Diagnosis (chest pain, altered mental status, abdominal pain women, abdominal pain men, vaginal bleeding, weakness, fever, dyspnea, syncope, headache, dizziness, GI bleed, back pain, seizure, CVA, palpatations, mental health, musculoskeletal)? @ -Differential Weakness: Hypoglycemia, shock, sepsis, hyponatremia, anemia, infection, NC, ETOH, adverse medicine reaction, overdose, stroke, this is not meant to be an all-inclusive list. EKG interpreted by me (3pts min.). @ -As above X-rays interpreted by me (1pt min.). @Chest x-ray today shows evidence of pneumonia CT interpreted by me (1pt min.). @ -None done U/S interpreted by me (1pt. min.). @ -None done What testing was considered but not performed or refused? (CT, X-rays, U/S, labs)? Why? @ -None What meds were considered but not given or refused? Why? @ -None Did you discuss the management of the patient with other professionals (kaitlin miller i.e. , PA, CONCRETE CRUSHER LOADER OPERATOR, lab, RT, psych nurse, neonatal social worker, textile conversion manager, teacher, disbursing officer, disability case manager)? Give summary @ -[Sound physician for admission for pneumonia, weakness, dehydration, GI bleed Was smoking cessation discussed for >3mins.? @ -No Was critical care preformed (if so, how long)? @ -No Were there social determinants of health that impacted care today? How? (Homelessness, low income, unemployed, alcoholism, drug addiction, transportation, low edu. Level, literacy, decrease access to med. care, assisted, rehab)? @ -No Was there de-escalation of care discussed even if they declined (Discuss DNR or withdrawal of care, Hospice)? DNR status @ -No What co-morbidities impacted this encounter? (DM, HTN, Smoking, COPD, CAD, Cancer, CVA, ARF, Chemo, Hep., AIDS, mental health diagnosis, sleep apnea, morbid obesity)? @ -COPD Was patient admitted / discharged? Hospital course, mention meds given and route, prescriptions, significant lab abnormalities, going to OR and other per tinent info. @ -Admit the patient found to have evidence of pneumonia was given 2 g Rocephin, azithromycin. Patient was started on breathing treatments, steroids for COPD. Patient also is Hemoccult positive with notable melanotic stools. Patient hemoglobin is stable was given Protonix and started on Protonix twice daily will have consults to GI and pulmonary. Undiagnosed new problem with uncertain prognosis? @ -No Drug Therapy requiring intensive monitoring for toxicity (Heparin, Nitro, Insul in, Cardizem)? @ -No Were any procedures done? @ -No Diagnosis/symptom? @ -GI bleed, pneumonia, weakness, dehydration Acute, or Chronic, or Acute on Chronic? @ -Acute Uncomplicated (without systemic symptoms) or Complicated (systemic symptoms)? @ -Complicated Side effects of treatment? @ -No Exacerbation, Progression, or Severe Exacerbation? @ -No Poses a threat to life or bodily function? How? (Chest pain, USA, NC, pneumonia, PE, COPD, DKA, ARF, appy, cholecystitis, CVA, Diverticulitis, Homicidal, Suicidal, threat to staff... and all critical care pts) @ -Yes pneumonia, GI bleed - Lab Data Result diagrams: 10/24/23 11:06 10/24/23 11:06 Lab Results 10/24/23 10/24/23 10/24/23 Range/Units 11:06 11:06 11:06 WBC 14.9 H (3.8-10.6) k/uL RBC 4.53 (4.30-5.90) m/uL Hgb 13.8 (13.0-17.5) gm/dL Hct 43.2 (39.0-53.0) % MCV 95.4 (80.0-100.0) fL MCH 30.4 (25.0-35.0) pg MCHC 31.9 (31.0-37.0) g/dL RDW 12.8 (11.5-15.5) % Plt Count 369 (150-450) k/uL MPV 9.6 Neutrophils % 90 % Lymphocytes % 3 % Monocytes % 5 % Eosinophils % 1 % Basophils % 0 % Neutrophils # 13.4 H (1.3-7.7) k/uL Lymphocytes # 0.5 L (1.0-4.8) k/uL Monocytes # 0.7 (0-1.0) k/uL Eosinophils # 0.1 (0-0.7) k/uL Basophils # 0.1 (0-0.2) k/uL PT 14.8 H (10.0-12.5) sec INR 1.4 H (<1.2) APTT 24.9 (22.0-30.0) sec Sodium (137-145) mmol/L Potassium (3.5-5.1) mmol/L Chloride (98-107) mmol/L Carbon Dioxide (22-30) mmol/L Anion Gap mmol/L BUN (9-20) mg/dL Creatinine (0.66-1.25) mg/dL Est GFR (CKD-EPI)AfAm (>60 ml/min/1.73 sqM) Est GFR (CKD-EPI)NonAf (>60 ml/min/1.73 sqM) Glucose (74-99) mg/dL Plasma Lactic Acid Aj (0.7-2.0) mmol/L Calcium (8.4-10.2) mg/dL Magnesium (1.6-2.3) mg/dL Total Bilirubin (0.2-1.3) mg/dL AST (17-59) U/L ALT (4-49) U/L Alkaline Phosphatase (38-126) U/L Creatine Kinase (55-170) U/L Troponin I (0.000-0.034) ng/mL Total Protein (6.3-8.2) g/dL Albumin (3.5-5.0) g/dL Urine Color Urine Appearance (Clear) Urine pH (5.0-8.0) Ur Specific Mccune (1.001-1.035) Urine Protein (Negative) Urine Glucose (UA) (Negative) Urine Ketones (Negative) Urine Blood (Negative) Urine Nitrite (Negative) Urine Bilirubin (Negative) Urine Urobilinogen (<2.0) mg/dL Ur Leukocyte Esterase (Negative) Urine RBC (0-5) /hpf Urine WBC (0-5) /hpf Ur Squamous Epith Cells (0-4) /hpf Hyaline Casts (0-2) /lpf Urine Mucus (None) /hpf Stool Occult Blood Positive (Negative) Blood Type Blood Type Confirm Blood Type Recheck Bld Type Recheck Status Antibody Screen Spec Expiration Date 10/24/23 10/24/23 10/24/23 Range/Units 11:06 11:06 11:06 WBC (3.8-10.6) k/uL RBC (4.30-5.90) m/uL Hgb (13.0-17.5) gm/dL Hct (39.0-53.0) % MCV (80.0-100.0) fL MCH (25.0-35.0) pg MCHC (31.0-37.0) g/dL RDW (11.5-15.5) % Plt Count (150-450) k/uL MPV Neutrophils % % Lymphocytes % % Monocytes % % Eosinophils % % Basophils % % Neutrophils # (1.3-7.7) k/uL Lymphocytes # (1.0-4.8) k/uL Monocytes # (0-1.0) k/uL Eosinophils # (0-0.7) k/uL Basophils # (0-0.2) k/uL PT (10.0-12.5) sec INR (<1.2) APTT (22.0-30.0) sec Sodium 139 (137-145) mmol/L Potassium 4.9 (3.5-5.1) mmol/L Chloride 102 (98-107) mmol/L Carbon Dioxide 23 (22-30) mmol/L Anion Gap 14 mmol/L BUN 45 H (9-20) mg/dL Creatinine 1.37 H (0.66-1.25) mg/dL Est GFR (CKD-EPI)AfAm 61 (>60 ml/min/1.73 sqM) Est GFR (CKD-EPI)NonAf 52 (>60 ml/min/1.73 sqM) Glucose 147 H (74-99) mg/dL Plasma Lactic Acid Aj 3.1 H* (0.7-2.0) mmol/L Calcium 8.4 (8.4-10.2) mg/dL Magnesium 1.8 (1.6-2.3) mg/dL Total Bilirubin 0.9 (0.2-1.3) mg/dL AST 23 (17-59) U/L ALT 15 (4-49) U/L Alkaline Phosphatase 88 (38-126) U/L Creatine Kinase 51 L (55-170) U/L Troponin I (0.000-0.034) ng/mL Total Protein 6.9 (6.3-8.2) g/dL Albumin 2.9 L (3.5-5.0) g/dL Urine Color Yellow Urine Appearance Clear (Clear) Urine pH 6.0 (5.0-8.0) Ur Specific Mccune 1.015 (1.001-1.035) Urine Protein Trace H (Negative) Urine Glucose (UA) Negative (Negative) Urine Ketones 1+ H (Negative) Urine Blood Moderate H (Negative) Urine Nitrite Negative (Negative) Urine Bilirubin Negative (Negative) Urine Urobilinogen <2.0 (<2.0) mg/dL Ur Leukocyte Esterase Negative (Negative) Urine RBC 1 (0-5) /hpf Urine WBC 3 (0-5) /hpf Ur Squamous Epith Cells 2 (0-4) /hpf Hyaline Casts 13 H (0-2) /lpf Urine Mucus Occasional H (None) /hpf Stool Occult Blood (Negative) Blood Type Blood Type Confirm Blood Type Recheck Bld Type Recheck Status Antibody Screen Spec Expiration Date 10/24/23 10/24/23 10/24/23 Range/Units 11:06 11:06 12:09 WBC (3.8-10.6) k/uL RBC (4.30-5.90) m/uL Hgb (13.0-17.5) gm/dL Hct (39.0-53.0) % MCV (80.0-100.0) fL MCH (25.0-35.0) pg MCHC (31.0-37.0) g/dL RDW (11.5-15.5) % Plt Count (150-450) k/uL MPV Neutrophils % % Lymphocytes % % Monocytes % % Eosinophils % % Basophils % % Neutrophils # (1.3-7.7) k/uL Lymphocytes # (1.0-4.8) k/uL Monocytes # (0-1.0) k/uL Eosinophils # (0-0.7) k/uL Basophils # (0-0.2) k/uL PT (10.0-12.5) sec INR (<1.2) APTT (22.0-30.0) sec Sodium (137-145) mmol/L Potassium (3.5-5.1) mmol/L Chloride (98-107) mmol/L Carbon Dioxide (22-30) mmol/L Anion Gap mmol/L BUN (9-20) mg/dL Creatinine (0.66-1.25) mg/dL Est GFR (CKD-EPI)AfAm (>60 ml/min/1.73 sqM) Est GFR (CKD-EPI)NonAf (>60 ml/min/1.73 sqM) Glucose (74-99) mg/dL Plasma Lactic Acid Aj (0.7-2.0) mmol/L Calcium (8.4-10.2) mg/dL Magnesium (1.6-2.3) mg/dL Total Bilirubin (0.2-1.3) mg/dL AST (17-59) U/L ALT (4-49) U/L Alkaline Phosphatase (38-126) U/L Creatine Kinase (55-170) U/L Troponin I 0.015 (0.000-0.034) ng/mL Total Protein (6.3-8.2) g/dL Albumin (3.5-5.0) g/dL Urine Color Urine Appearance (Clear) Urine pH (5.0-8.0) Ur Specific Mccune (1.001-1.035) Urine Protein (Negative) Urine Glucose (UA) (Negative) Urine Ketones (Negative) Urine Blood (Negative) Urine Nitrite (Negative) Urine Bilirubin (Negative) Urine Urobilinogen (<2.0) mg/dL Ur Leukocyte Esterase (Negative) Urine RBC (0-5) /hpf Urine WBC (0-5) /hpf Ur Squamous Epith Cells (0-4) /hpf Hyaline Casts (0-2) /lpf Urine Mucus (None) /hpf Stool Occult Blood (Negative) Blood Type O Positive Blood Type Confirm O Positive Blood Type Recheck No Previous Record Bld Type Recheck Status CABO Indicated Antibody Screen NEGATIVE Spec Expiration Date 10/27/20232305 Disposition Clinical Impression: Pneumonia, COPD (chronic obstructive pulmonary disease), GI bleed, Dehydration Disposition: ADMITTED IP TO THIS [facility] Condition: Poor Referrals: None,Stated [Primary Care Provider] - 1-2 days Time of Disposition: 13:39
[2023-10-24] MEDS: SODIUM CHLORIDE 0.9% 1,000 ML IV STA (11:47)
--- NOTE | 2023-10-24 12:07 | XR ---
EXAMINATION TYPE: XR chest 2V DATE OF EXAM: 10/24/2023 COMPARISON: 11/21/2018 TECHNIQUE: PA and lateral views submitted. HISTORY: Weakness FINDINGS: There is right apical pleural thickening with emphysematous changes. Left basilar infiltrate. Prominent pulmonary arteries compatible with pulmonary arterial hypertension . Diffuse emphysematous changes with ectasia of the aorta. Atherosclerotic changes. There is a small pl eural effusion. No pneumothorax. IMPRESSION: 1. COPD with left basilar infiltrate and small pleural effusion. 2. Ectasia or aneurysmal dilation a sending aorta. 3. Stable apical pleural nodularity suspected scarring unchanged from 2019.
[2023-10-24 12:17] LABS: Basophils # (A) 0.1 k/uL (0-0.2); Basophils % (A) 0 %; Eosinophils # (A) 0.1 k/uL (0-0.7); Eosinophils % (A) 1 %; HCT 43.2 % (39.0-53.0); HGB 13.8 gm/dL (13.0-17.5); Lymphocytes # (A) 0.5 k/uL (1.0-4.8); Lymphocytes % (A) 3 %; MCH 30.4 pg (25.0-35.0); MCHC 31.9 g/dL (31.0-37.0); MCV 95.4 fL (80.0-100.0); Mean Platelet Volume 9.6; Monocytes # (A) 0.7 k/uL (0-1.0); Monocytes % (A) 5 %; Neutrophils # (A) 13.4 k/uL (1.3-7.7); Neutrophils % (A) 90 %; Platelet Count 369 k/uL (150-450); RBC 4.53 m/uL (4.30-5.90); RDW 12.8 % (11.5-15.5); WBC 14.9 k/uL (3.8-10.6)
[2023-10-24 12:24] LABS: ALT 15 U/L (4-49); AST 23 U/L (17-59); African American GFR (CKD) 61 (>60 ml/min/1.73 sqM); Albumin 2.9 g/dL (3.5-5.0); Alkaline Phosphatase 88 U/L (38-126); Anion Gap 14 mmol/L; Blood Urea Nitrogen 45 mg/dL (9-20); Calcium 8.4 mg/dL (8.4-10.2); Carbon Dioxide 23 mmol/L (22-30); Chloride 102 mmol/L (98-107); Creatine Kinase 51 U/L (55-170); Glucose 147 mg/dL (74-99); Magnesium 1.8 mg/dL (1.6-2.3); Non-African American GFR(CKD) 52 (>60 ml/min/1.73 sqM); Potassium 4.9 mmol/L (3.5-5.1); Sodium 139 mmol/L (137-145); Total Bilirubin 0.9 mg/dL (0.2-1.3); Total Protein 6.9 g/dL (6.3-8.2)
[2023-10-24 12:38] LABS: INR 1.4 (<1.2); Partial Thromboplastin Time 24.9 sec (22.0-30.0); Prothrombin Time 14.8 sec (10.0-12.5)
[2023-10-24] MEDS: SODIUM CHLORIDE 0.9% 1,000 ML IV ONE (12:48)
[2023-10-24] MEDS: ONDANSETRON 4 MG/2 ML VIAL IVP STA (13:15)
[2023-10-24] MEDS: PANTOPRAZOLE 40 MG/10 ML VIAL IVP STA (13:16)
[2023-10-24] MEDS ORDERED: ALBUTEROL NEBULIZED 2.5 MG/3 ML INHALATION PRN (13:42)
[2023-10-24] MEDS ORDERED: PNEUMONIA PROTOCOL UTILIZED 1 EACH MISC PO PRN (13:42)
[2023-10-24] MEDS ORDERED: IPRATROPIUM-ALBUTEROL 3 ML NEB INHALATION PRN (13:42)
[2023-10-24 14:12] LABS: Appearance,Urine Clear (Clear); Bilirubin,Urine Negative (Negative); Blood,Urine Moderate (Negative); Color,Urine Yellow; Glucose,Urine (UA) Negative (Negative); Hyaline Casts,Urine 13 /lpf (0-2); Ketones,Urine 1+ (Negative); Leukocyte Esterase,Urine Negative (Negative); Mucus,Urine Occasional /hpf; Nitrite,Urine Negative (Negative); Protein,Urine Trace (Negative); RBC,Urine 1 /hpf (0-5); Specific Gravity,Urine 1.015 (1.001-1.035); Squamous Epithelial Cell,Urine 2 /hpf (0-4); Urobilinogen,Urine <2.0 mg/dL (<2.0); WBC,Urine 3 /hpf (0-5)
[2023-10-24] MEDS: AZITHROMYCIN 500 MG in SODIUM CHLORIDE 0.9% 250 ML IVPB STA (14:19)
[2023-10-24] MEDS: methylPREDNISolone SOD SUCCI 125 MG/2 ML VIAL IV STA (14:19)
[2023-10-24] MEDS: IPRATROPIUM-ALBUTEROL 3 ML NEB INHALATION STA (14:45)
--- NOTE | 2023-10-24 16:31 | P.CNPUL ---
History of Present Illness Consult date: 10/24/23 Reason for consult: dyspnea, COPD History of present illness: Nothing else this is a 68-year-old male patient, known history of COPD who quit smoking back in 2018. Nevertheless, the patient advanced bullous emphysema. He used to follow-up with Dr. ESTEFANY Camara in the past and he stopped all medical care and he has not seen a physician for quite some time. He has been living at home and he got to a point where it became very difficult to take care of himself. Currently is unable to move and walk more than few feet. Apparently, he has not gotten out of his chair for several weeks he has not been eating or drinking. He was getting food brought to him in the past. His friend came in to check on him today and he was found to be very weak, debilitated and covered in stools and based on that, EMS was called to the scene and the patient was brought into the hospital. The patient denies having any acute worsening in shortness of breath. He has a chronic cough and congestion and wheeze. He has quit using his respiratory medication for several years. No reported aspiration. 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 I was able to retrieve his old CAT scan of the chest from 2019 and back then the patient was found to have bullous emphysema with upper lobe predominance and his emphysema was quite advanced. There was also areas of scarring specially in the apices bilaterally. No evidence of any malignancy back then. The repeat chest x-ray that was done in the emergency department today showed COPD with some left basilar infiltration and small effusion. He had ectasia of the ascending aorta along with chronic stable pleural nodular changes and scarring that were present and unchanged since 2019. The patient is has been in a very poor living condition. He also tells me that he is going to be evicted from his apartment. He has no chest pain. No edema lower extremities. No palpitation. Denies having any previous history of cardiac disease. The white cell count of 14.9 with hemoglobin 13.8 and a platelet count of 369. INR is 1.4 with a PT of 14.8. Lactic acid level at time of admission was 3.1. BUN was 45 with a creatinine of 1.37 and sodium levels of 139. UA showing +1 ketones, occult stool was positive. The patient was started on IV Rocephin. The patient was started on albuterol nebulized treatments [id number]. The viral panel has not been done. Review of Systems Constitutional: Reports fatigue, Reports weakness Eyes: denies as per HPI, denies blurred vision, denies bulging eye, denies decr eased vision, denies diplopia, denies discharge, denies dry eye, denies irritation, denies itching, denies pain, denies photophobia, denies loss of peripheral vision, denies loss of vision, denies tunnel vision/blind spots Ears: deny: decreased hearing, ear discharge, earache, tinnitus Ears, nose, mouth and throat: Reports as per HPI Breasts: absent: as per HPI, gynecomastia Cardiovascular: Reports decreased exercise tolerance, Reports dyspnea on exertion Respiratory: Reports cough, Reports dyspnea, Reports wheezing Gastrointestinal: Reports as per HPI Genitourinary: Reports as per HPI Musculoskeletal: Reports as per HPI Musculoskeletal: absent: ankle pain, ankle stiffness, ankle swelling Integumentary: Reports as per HPI Neurological: Reports as per HPI Psychiatric: Reports as per HPI Endocrine: Reports as per HPI, Reports fatigue Hematologic/Lymphatic: Reports as per HPI Allergic/Immunologic: Reports as per HPI Past Medical History Past Medical History: COPD History of Any Multi-Drug Resistant Organisms: None Reported Past Surgical History: No Surgical Hx Reported Past Anesthesia/Blood Transfusion Reactions: No Reported Reaction Past Psychological History: No Psychological Hx Reported Smoking Status: Former smoker (quit smoking 2017 and he has smoked 45 years , 1.5 PPD) Past Alcohol Use History: None Reported Past Drug Use History: None Reported - Past Family History Mother Family Medical History: Myocardial Infarction ([place]) Medications and Allergies Home Medications Medication Instructions Recorded Confirmed Type No Known Home Medications 10/24/23 10/24/23 History Allergies Allergy/AdvReac Type Severity Reaction Status Date / Time No Known Allergies Allergy Verified 10/24/23 11:40 Physical Exam Vitals: Vital Signs Temp Pulse Resp BP Pulse Ox 10/24/23 14:54 121 H 10/24/23 14:48 120 H 10/24/23 13:30 97.3 F L 10/24/23 13:20 113 H 15 119/106 100 10/24/23 13:00 94 20 115/97 93 L 10/24/23 12:00 105 H 19 115/97 95 10/24/23 11:34 135 H 19 104/68 94 L 10/24/23 10:38 135 H 17 100/61 98 10/24/23 10:25 54 L 97/71 94 L Intake and Output 10/24/23 10/24/23 10/24/23 06:59 14:59 22:59 Other: Weight 63.503 kg Debilitated, cachectic and weak, in a very poor hygienic state and not in acute respiratory distress. Awake and alert and communicating. Head exam was generally normal. There was no scleral icterus or corneal arcus. Mucous membranes were moist. Neck was supple and without jugular venous distension, thyromegaly, or carotid bruits. Carotids were easily palpable b ilaterally. There was no adenopathy. Lung sounds are diminished bilaterally and the patient has minimal in the lung bases bilaterally. Scant expiratory wheezes. He has a barrel chest. Heart sounds are tachycardic, regular, positive S1-S2 and there is no significant murmurs appreciated and the patient's heart sounds are distant. Abdominal exam revealed normal bowel sounds. The abdomen was soft, non-tender, and without masses, organomegaly, or appreciable enlargement of the abdominal aorta. Examination of the extremities revealed easily palpable radial, femoral and pedal pulses. There was no cyanosis, clubbing or edema. Examination of the extremities revealed easily palpable radial, femoral and pedal pulses. There was no cyanosis, clubbing or edema. examination of the skin revealed no evidence of significant rashes, suspicious appearing nevi or other concerning lesions. Neurologically, the patient is awake and alert and the patient does not have any focal neurological deficit. Cranial nerves are essentially intact. Results - Laboratory Findings CBC and BMP: 10/24/23 11:06 10/24/23 11:06 PT/INR, D-dimer PT 14.8 sec (10.0-12.5) H 10/24/23 11:06 INR 1.4 (<1.2) H 10/24/23 11:06 Abnormal lab findings: Abnormal Labs 10/24/23 10/24/23 10/24/23 11:06 11:06 11:06 WBC 14.9 H Neutrophils # 13.4 H Lymphocytes # 0.5 L PT 14.8 H INR 1.4 H BUN Creatinine Glucose Plasma Lactic Acid Aj Creatine Kinase Albumin Urine Protein Trace H Urine Ketones 1+ H Urine Blood Moderate H Hyaline Casts 13 H Urine Mucus Occasional H 10/24/23 10/24/23 11:06 11:06 WBC Neutrophils # Lymphocytes # PT INR BUN 45 H Creatinine 1.37 H Glucose 147 H Plasma Lactic Acid Aj 3.1 H* Creatine Kinase 51 L Albumin 2.9 L Urine Protein Urine Ketones Urine Blood Hyaline Casts Urine Mucus - Diagnostic Findings Chest x-ray: image reviewed Assessment and Plan Plan: Acute hypoxic respiratory failure and he is on 02 4 liters/min COPD exacerbation Advanced bullous emphysema, with diffuse emphysematous change in the upper lobes bilaterally along with apical scarring Left lower lobe pulm infiltrate and effusion, new finding compared with previous x-ray from 2019. Rule out pneumonia. Acute dehydration, essentially due to diminished oral intake Acute lactic acidosis Acute leukocytosis likely secondary to above Mild coagulopathy with INR of 1.4, could be dietary and nutritional Acute kidney injury Sinus tachycardia secondary to above Poor living conditions, unable to take care of himself Plan Titrate oxygen flow to maintain saturation above 90%, currently on 4 L of O2 nasal cannula will cover the patient with albuterol/ipratropium nebulized treatments [id number] 4 times a day IV Solu-Medrol 60 mg every 6 hours IV Rocephin as an empiric antibiotic coverage IV fluids and replenish the patient's fluid imbalance Social work consult and case management to assess his living conditions Heparin subcu for DVT prophylaxis Monitor renal function and electrolytes Will continue to follow
--- NOTE | 2023-10-24 16:50 | P.HPIM ---
History of Present Illness H&P Date: 10/24/23 67 year old M with PMH of a history of COPD and heavy smoking history presents to the ED. Reports smoking 1.5 PPD for the last 50 years. He has progressively been feeling more short of breath and mostly home bound because of this. He has seen Dr. Camara many years back but has not followed up with a physician in years. Patient reports not being able to get out of his chair for weeks. Today, his caregiver found him covered in stool which prompted him to call EMS. Stool was noted to be black in color. In the ED he underwent extensive evaluation. BP 100/61, HR 135, RR 17, T 97.3F, 94% on RA. During the encounter, patient desaturated into the 70s on 3 L NC. CBC, coag panel, CMP was done significant for WBC count 14.9, PT 14.8, INR 1.4, BUN 45, creatinine 1.37, glucose 147, albumin 2.9. Lactic acid 3.1. CPK 51. Urinalysis 1+ ketone, moderate blood. Stool for occult blood positive. Troponin 0.015. Chest x-ray findings of COPD with left basilar infiltrate, ectasia dilation ascending aorta, apical pleural nodularity. EKG sinus tachycardia with ventricular rate of 133. Patient is admitted for COPD exacerbation and GI bleed. General: non toxic, no distress, appears at stated age Derm: warm, dry Head: atraumatic, normocephalic, symmetric Eyes: EOMI, no lid lag, anicteric sclera Mouth: no lip lesion, mucus membranes moist Cardiovascular: S1S2 tachy, no murmur Lungs: Expiratory wheezing bilateral, no rhonchi, no rales , no accessory muscle use, pursed lip breathing Ext: no gross muscle atrophy, no edema, no contractures Neuro: no focal neuro deficits Psych: Alert, oriented, appropriate affect Based on my assessment of this patient, this patient meets a high complexity level of care. Patient has an acute diagnosis of acute hypoxic respiratory failure due to COPD exacerbation and GI bleed that poses a threat to life or bodily function. Acute hypoxic respiratory failure Sepsis secondary to community acquired PNA: Leukocytosis, tachycardia, + source of infection. Start Rocephin 1g IV QD, Azithromycin 500 mg PO QD. Sputum and Blood Cx. Legionella. Telemetry monitoring. Trend lactic until negative. NS at 75 cc/hr. Pulmonary on board. Acute on chronic COPD exacerbation: DuoNeb scheduled. Solumedrol 60 mg IV Q6H. Upper GI bleed: Protonix 40 mg IV BID. Trend Hg. GI consult tomorrow. Acute kidney injury: IV hydration as above. Supratherapeutic INR CODE STATUS: NO CODE. DVT Prophylaxis: Heparin GI Prophylaxis: Protonix IV Designated medical POA if patient is not able to make medical decisions for themselves: Dmitri (friend) I have reviewed the following sales and leasing consultant notes: ED. I have reviewed the results of the following tests: As above I have ordered the following tests: As above. I have discussed the care of this patient with the following independent histo carlos: I have independently interpreted the following test below: EKG. CXR. I have discussed the management of this patient with the following physician: Past Medical History Past Medical History: COPD History of Any Multi-Drug Resistant Organisms: None Reported Past Surgical History: No Surgical Hx Reported Past Anesthesia/Blood Transfusion Reactions: No Reported Reaction Past Psychological History: No Psychological Hx Reported Smoking Status: Former smoker (quit smoking 2017 and he has smoked 45 years , 1.5 PPD) Past Alcohol Use History: None Reported Past Drug Use History: None Reported - Past Family History Mother Family Medical History: Myocardial Infarction ([place]) Medications and Allergies Home Medications Medication Instructions Recorded Confirmed Type No Known Home Medications 10/24/23 10/24/23 History Allergies Allergy/AdvReac Type Severity Reaction Status Date / Time No Known Allergies Allergy Verified 10/24/23 11:40 Physical Exam Vitals: Vital Signs Temp Pulse Resp BP Pulse Ox 10/24/23 15:00 118 H 14 116/94 94 L 10/24/23 14:54 121 H 10/24/23 14:48 120 H 10/24/23 14:00 118 H 13 119/106 10/24/23 13:30 97.3 F L 10/24/23 13:20 113 H 15 119/106 100 10/24/23 13:00 94 20 115/97 93 L 10/24/23 12:00 105 H 19 115/97 95 10/24/23 11:34 135 H 19 104/68 94 L 10/24/23 10:38 135 H 17 100/61 98 10/24/23 10:25 54 L 97/71 94 L Intake and Output 10/24/23 10/24/23 10/24/23 06:59 14:59 22:59 Other: Weight 63.503 kg Results CBC & Chem 7: 10/24/23 11:06 10/24/23 11:06 Labs: Abnormal Lab Results - Last 24 Hours (Table) 10/24/23 10/24/23 10/24/23 Range/Units 11:06 11:06 11:06 WBC 14.9 H (3.8-10.6) k/uL Neutrophils # 13.4 H (1.3-7.7) k/uL Lymphocytes # 0.5 L (1.0-4.8) k/uL PT 14.8 H (10.0-12.5) sec INR 1.4 H (<1.2) BUN (9-20) mg/dL Creatinine (0.66-1.25) mg/dL Glucose (74-99) mg/dL Plasma Lactic Acid Aj (0.7-2.0) mmol/L Creatine Kinase (55-170) U/L Albumin (3.5-5.0) g/dL Urine Protein Trace H (Negative) Urine Ketones 1+ H (Negative) Urine Blood Moderate H (Negative) Hyaline Casts 13 H (0-2) /lpf Urine Mucus Occasional H (None) /hpf 10/24/23 10/24/23 Range/Units 11:06 11:06 WBC (3.8-10.6) k/uL Neutrophils # (1.3-7.7) k/uL Lymphocytes # (1.0-4.8) k/uL PT (10.0-12.5) sec INR (<1.2) BUN 45 H (9-20) mg/dL Creatinine 1.37 H (0.66-1.25) mg/dL Glucose 147 H (74-99) mg/dL Plasma Lactic Acid Aj 3.1 H* (0.7-2.0) mmol/L Creatine Kinase 51 L (55-170) U/L Albumin 2.9 L (3.5-5.0) g/dL Urine Protein (Negative) Urine Ketones (Negative) Urine Blood (Negative) Hyaline Casts (0-2) /lpf Urine Mucus (None) /hpf
[2023-10-24] MEDS: SODIUM CHLORIDE 0.9% 1,000 ML IV SCH (17:56)
[2023-10-24] MEDS: methylPREDNISolone SOD SUCCI 125 MG/2 ML VIAL IV SCH (17:57)
[2023-10-24] MEDS: HEPARIN SODIUM,PORCINE 5,000 UNIT/ML 1 ML VIAL SQ SCH (21:58)
[2023-10-24] MEDS: PANTOPRAZOLE 40 MG/10 ML VIAL IVP SCH (21:58)
[2023-10-25 06:37] LABS: African American GFR (CKD) 88 (>60 ml/min/1.73 sqM); Anion Gap 6 mmol/L; Blood Urea Nitrogen 42 mg/dL (9-20); Calcium 7.6 mg/dL (8.4-10.2); Carbon Dioxide 21 mmol/L (22-30); Chloride 110 mmol/L (98-107); Glucose 153 mg/dL (74-99); Non-African American GFR(CKD) 77 (>60 ml/min/1.73 sqM); Potassium 4.2 mmol/L (3.5-5.1); Sodium 137 mmol/L (137-145)
--- NOTE | 2023-10-25 08:27 | XR ---
EXAMINATION TYPE: XR chest 2V DATE OF EXAM: 10/25/2023 COMPARISON: 10/24/2023, 11/21/2018 TECHNIQUE: PA and lateral views submitted. HISTORY: Shortness of breath FINDINGS: Diffuse emphysematous changes are seen. There is bilateral lower lobe infiltrate and small effusion w ith no overt failure. Linear area of density with pleural apical thickening on the right is similar t o the prior exam 19 therefore likely in the basis of chronic scarring. There now is an adjacent area of density measuring 1.2 cm. Hypertrophic and degenerative changes of spine. Diffuse osteopenia. Ectasia of the thoracic aorta wit h atherosclerotic change. Prominence of the pulmonary arteries likely reflects pulmonary arterial hyp ertension. IMPRESSION: 1. COPD with bilateral lower infiltrate and small effusion. 2. There is a new questionable nodule in the right upper lobe adjacent to the area of scarring recomm end CT of the chest.
[2023-10-25 10:23] LABS: HCT 32.8 % (39.0-53.0); HGB 10.9 gm/dL (13.0-17.5); MCHC 33.1 g/dL (31.0-37.0); MCV 96.6 fL (80.0-100.0); Platelet Count 266 k/uL (150-450); RDW 13.4 % (11.5-15.5); WBC 16.6 k/uL (3.8-10.6)
--- NOTE | 2023-10-25 11:28 | P.PN ---
Subjective Progress Note Date: 10/25/23 Nothing else this is a 68-year-old male patient, known history of COPD who quit smoking back in 2018. Nevertheless, the patient advanced bullous emphysema. He used to follow-up with Dr. ESTEFANY Camara in the past and he stopped all medical care and he has not seen a physician for quite some time. He has been living at home and he got to a point where it became very difficult to take care of himself. Currently is unable to move and walk more than few feet. Apparently, he has not gotten out of his chair for several weeks he has not been eating or drinking. He was getting food brought to him in the past. His friend came in to check on him today and he was found to be very weak, debilitated and covered in stools and based on that, EMS was called to the scene and the patient was brought into the hospital. The patient denies having any acute worsening in shortness of breath. He has a chronic cough and congestion and wheeze. He has quit using his respiratory medication for several years. No reported aspiration. 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 I was able to retrieve his old CAT scan of the chest from 2019 and back then the patient was found to have bullous emphysema with upper lobe predominance and his emphysema was quite advanced. There was also areas of scarring specially in the apices bilaterally. No evidence of any malignancy back then. The repeat chest x-ray that was done in the emergency department today showed COPD with some left ba silar infiltration and small effusion. He had ectasia of the ascending aorta along with chronic stable pleural nodular changes and scarring that were present and unchanged since 2019. The patient is has been in a very poor living condition. He also tells me that he is going to be evicted from his apartment. He has no chest pain. No edema lower extremities. No palpitation. Denies having any previous history of cardiac disease. The white cell count of 14.9 with hemoglobin 13.8 and a platelet count of 369. INR is 1.4 with a PT of 14.8. Lactic acid level at time of admission was 3.1. BUN was 45 with a creatinine of 1.37 and sodium levels of 139. UA showing +1 ketones, occult stool was positive. The patient was started on IV Rocephin. The patient was started on albuterol nebulized treatments [id number]. The viral panel has not been done. On today's evaluation of 10/25/2023, the patient's condition is stable. No new complaints. Repeat chest x-ray was done today and the patient was found to have stable findings with lower lobe pulm infiltrates and small left-sided pleural effusion along with background COPD. Questionable right upper lobe nodule versus scarring. The patient remains on IV Rocephin. Remains on IV Solu- Medrol. Remains on DuoNeb updrafts. Receiving IV fluids. The white cell count is 16.6 with a hemoglobin of 10.9. D-dimer was at 1.6. BUN is at 42 with a creatinine of 1 and there is improvement in the renal function. Serum bicarb is at 21 with a sodium level of 137. Troponins are negative. No evidence of any GI bleeding. Hemoglobin has dropped down to 10.9, could be dilutional. Objective - Vital Signs Vital signs: Vital Signs Temp 97.8 F 10/25/23 07:37 Pulse 83 10/25/23 07:37 Resp 17 10/25/23 07:37 BP 123/82 10/25/23 07:37 Pulse Ox 91 L 10/25/23 07:58 FiO2 Intake & Output 10/24/23 10/25/23 10/25/23 18:59 06:59 18:59 Output Total 350 Balance -350 Weight 63.503 kg 63.503 kg Output: Urine 350 Other: Voiding Method Urinal # Voids 1 # Bowel Movements 1 - Exam Debilitated, cachectic and weak, in a very poor hygienic state and not in acute respiratory distress. Awake and alert and communicating. Head exam was generally normal. There was no scleral icterus or corneal arcus. Mucous membranes were moist. Neck was supple and without jugular venous distension, thyromegaly, or carotid bruits. Carotids were easily palpable bilaterally. There was no adenopathy. Lung sounds are diminished bilaterally and the patient has minimal in the lung bases bilaterally. Scant expiratory wheezes. He has a barrel chest. Heart sounds are tachycardic, regular, positive S1-S2 and there is no significant murmurs appreciated and the patient's heart sounds are distant. Abdominal exam revealed normal bowel sounds. The abdomen was soft, non-tender, and without masses, organomegaly, or appreciable enlargement of the abdominal aorta. Examination of the extremities revealed easily palpable radial, femoral and pedal pulses. There was no cyanosis, clubbing or edema. Examination of the extremities revealed easily palpable radial, femoral and pedal pulses. There was no cyanosis, clubbing or edema. examination of the skin revealed no evidence of significant rashes, suspicious appearing nevi or other concerning lesions. Neurologically, the patient is katrina ke and alert and the patient does not have any focal neurological deficit. Cranial nerves are essentially intact. - Labs CBC & Chem 7: 10/25/23 09:13 10/25/23 04:58 Labs: Abnormal Lab Results - Last 24 Hours (Table) 10/24/23 10/24/23 10/24/23 Range/Units 11:06 11:06 11:06 WBC 14.9 H (3.8-10.6) k/uL Neutrophils # 13.4 H (1.3-7.7) k/uL Lymphocytes # 0.5 L (1.0-4.8) k/uL PT 14.8 H (10.0-12.5) sec INR 1.4 H (<1.2) D-Dimer (<0.60) mg/L FEU Chloride (98-107) mmol/L Carbon Dioxide (22-30) mmol/L BUN (9-20) mg/dL Creatinine (0.66-1.25) mg/dL Glucose (74-99) mg/dL Plasma Lactic Acid Aj (0.7-2.0) mmol/L Calcium (8.4-10.2) mg/dL Creatine Kinase (55-170) U/L Albumin (3.5-5.0) g/dL Urine Protein Trace H (Negative) Urine Ketones 1+ H (Negative) Urine Blood Moderate H (Negative) Hyaline Casts 13 H (0-2) /lpf Urine Mucus Occasional H (None) /hpf 10/24/23 10/24/23 10/24/23 Range/Units 11:06 11:06 16:16 WBC (3.8-10.6) k/uL Neutrophils # (1.3-7.7) k/uL Lymphocytes # (1.0-4.8) k/uL PT (10.0-12.5) sec INR (<1.2) D-Dimer (<0.60) mg/L FEU Chloride (98-107) mmol/L Carbon Dioxide (22-30) mmol/L BUN 45 H (9-20) mg/dL Creatinine 1.37 H (0.66-1.25) mg/dL Glucose 147 H (74-99) mg/dL Plasma Lactic Acid Aj 3.1 H* 2.4 H* (0.7-2.0) mmol/L Calcium (8.4-10.2) mg/dL Creatine Kinase 51 L (55-170) U/L Albumin 2.9 L (3.5-5.0) g/dL Urine Protein (Negative) Urine Ketones (Negative) Urine Blood (Negative) Hyaline Casts (0-2) /lpf Urine Mucus (None) /hpf 10/25/23 10/25/23 Range/Units 04:58 06:12 WBC (3.8-10.6) k/uL Neutrophils # (1.3-7.7) k/uL Lymphocytes # (1.0-4.8) k/uL PT (10.0-12.5) sec INR (<1.2) D-Dimer 1.60 H (<0.60) mg/L FEU Chloride 110 H (98-107) mmol/L Carbon Dioxide 21 L (22-30) mmol/L BUN 42 H (9-20) mg/dL Creatinine (0.66-1.25) mg/dL Glucose 153 H (74-99) mg/dL Plasma Lactic Acid Aj (0.7-2.0) mmol/L Calcium 7.6 L (8.4-10.2) mg/dL Creatine Kinase (55-170) U/L Albumin (3.5-5.0) g/dL Urine Protein (Negative) Urine Ketones (Negative) Urine Blood (Negative) Hyaline Casts (0-2) /lpf Urine Mucus (None) /hpf Assessment and Plan Plan: Acute hypoxic respiratory failure and he is on 02 at 5 L/min nasal cannula COPD exacerbation, currently on bronchodilators steroids and antibiotics and the patient is currently on IV Rocephin, D-dimer is mildly elevated. Awaiting a CT of the chest Advanced bullous emphysema, with diffuse emphysematous change in the upper lobes bilaterally along with apical scarring Left lower lobe pulm infiltrate and effusion, new finding compared with previous x-ray from 2019. Rule out pneumonia. Awaiting CT of the chest Acute dehydration, essentially due to diminished oral intake, improving Acute lactic acidosis Acute leukocytosis likely secondary to above Mild coagulopathy with INR of 1.4, could be dietary and nutritional Acute kidney injury, improving Sinus tachycardia secondary to above, improving Poor living conditions, unable to take care of himself Plan CT of the chest will be obtained Titrate oxygen flow to maintain saturation above 90%, currently on 4 to 5 L of O2 nasal cannula will cover the patient with albuterol/ipratropium nebulized treatments [id number] 4 times a day IV Solu-Medrol 60 mg every 6 hours IV Rocephin as an empiric antibiotic coverage IV fluids and replenish the patient's fluid imbalance Renal function is improving Social work consult and case management to assess his living conditions Heparin subcu for DVT prophylaxis Monitor renal function and electrolytes Will continue to follow
--- NOTE | 2023-10-25 11:31 | P.PN ---
Subjective Progress Note Date: 10/25/23 67 year old M with PMH of a history of COPD and heavy smoking history presents to the ED. Reports smoking 1.5 PPD for the last 50 years. He has progressively been feeling more short of breath and mostly home bound because of this. He has seen Dr. Camara many years back but has not followed up with a physician in years. Patient reports not being able to get out of his chair for weeks. Today, his caregiver found him covered in stool which prompted him to call EMS. Stool was noted to be black in color. In the ED he underwent extensive evaluation. BP 100/61, HR 135, RR 17, T 97.3F, 94% on RA. During the encounter, patient desaturated into the 70s on 3 L NC. CBC, coag panel, CMP was done significant for WBC count 14.9, PT 14.8, INR 1.4, BUN 45, creatinine 1.37, glucose 147, albumin 2.9. Lactic acid 3.1. CPK 51. Urinalysis 1+ ketone, moderate blood. Stool for occult blood positive. Troponin 0.015. Chest x-ray findings of COPD with left basilar infiltrate, ectasia dilation ascending aorta, apical pleural nodularity. EKG sinus tachycardia with ventricular rate of 133. Patient is admitted for COPD exacerbation and GI bleed. 10/24 Patient was seen and examined. Reports improvement in his breathing. CBC WBC 16.6 Hg 10.9 Hct 32.8. BMP Cl 110, bicarb 21, BUN 42, glu 153, Ca 7.6. D- Dimer 1.60. Lactic acid 1.7. Discussed with Dr. Leiva, continue management, plans for CTA chest. General: non toxic, no distress, appears at stated age Derm: warm, dry Head: atraumatic, normocephalic, symmetric Eyes: EOMI, no lid lag, anicteric sclera Mouth: no lip lesion, mucus membranes moist Cardiovascular: S1S2 tachy, no murmur Lungs: Expiratory wheezing bilateral, no rhonchi, no rales , no accessory muscle use, pursed lip breathing Ext: no gross muscle atrophy, no edema, no contractures Neuro: no focal neuro deficits Psych: Alert, oriented, appropriate affect Based on my assessment of this patient, this patient meets a high complexity level of care. Patient has an acute diagnosis of acute hypoxic respiratory failure due to COPD exacerbation and GI bleed that poses a threat to life or bodily function. Acute hypoxic respiratory failure: D-Dimer elevated. Obtain CTA chest to rule out PE give immobility. Sepsis secondary to community acquired PNA: Leukocytosis, tachycardia, + source of infection. Continue Rocephin 1g IV QD, Azithromycin 500 mg PO QD. Sputum and Blood Cx. Legionella. Telemetry monitoring. Trend lactic until negative. NS at 75 cc/hr. Obtain pro-calcitonin. Pulmonary on board. Acute on chronic COPD exacerbation: DuoNeb scheduled. Solumedrol 60 mg IV Q6H. Upper GI bleed: Protonix 40 mg IV BID. Trend Hg. GI consult. Acute kidney injury: IV hydration as above. Supratherapeutic INR CODE STATUS: NO CODE. DVT Prophylaxis: Heparin GI Prophylaxis: Protonix IV Designated medical POA if patient is not able to make medical decisions for themselves: Dmitri (friend) I have reviewed the following sap ppm consultant notes: Pulmonary, GI. I have reviewed the results of the following tests: CBC, BMP, Lactic acid, D- Dimer. I have ordered the following tests: BMP. CTA chest. I have discussed the care of this patient with the following independent historian: RN, case management. I have independently interpreted the following test below: I have discussed the management of this patient with the following physician: Daniella Peck EXHIBIT DESIGNER with GI. Objective - Vital Signs Vital signs: Vital Signs Temp 97.8 F 10/25/23 07:37 Pulse 83 10/25/23 07:37 Resp 17 10/25/23 07:37 BP 123/82 10/25/23 07:37 Pulse Ox 91 L 10/25/23 07:58 FiO2 Intake & Output 10/24/23 10/25/23 10/25/23 18:59 06:59 18:59 Output Total 350 Balance -350 Weight 63.503 kg 63.503 kg Output: Urine 350 Other: Voiding Method Urinal Urinal # Voids 1 # Bowel Movements 1 - Labs CBC & Chem 7: 10/25/23 09:13 10/25/23 04:58 Labs: Abnormal Lab Results - Last 24 Hours (Table) 10/24/23 10/24/23 10/24/23 Range/Units 11:06 11:06 11:06 WBC 14.9 H (3.8-10.6) k/uL RBC (4.30-5.90) m/uL Hgb (13.0-17.5) gm/dL Hct (39.0-53.0) % Neutrophils # 13.4 H (1.3-7.7) k/uL Lymphocytes # 0.5 L (1.0-4.8) k/uL PT 14.8 H (10.0-12.5) sec INR 1.4 H (<1.2) D-Dimer (<0.60) mg/L FEU Chloride (98-107) mmol/L Carbon Dioxide (22-30) mmol/L BUN (9-20) mg/dL Creatinine (0.66-1.25) mg/dL Glucose (74-99) mg/dL Plasma Lactic Acid Aj (0.7-2.0) mmol/L Calcium (8.4-10.2) mg/dL Creatine Kinase (55-170) U/L Albumin (3.5-5.0) g/dL Urine Protein Trace H (Negative) Urine Ketones 1+ H (Negative) Urine Blood Moderate H (Negative) Hyaline Casts 13 H (0-2) /lpf Urine Mucus Occasional H (None) /hpf 10/24/23 10/24/23 10/24/23 Range/Units 11:06 11:06 16:16 WBC (3.8-10.6) k/uL RBC (4.30-5.90) m/uL Hgb (13.0-17.5) gm/dL Hct (39.0-53.0) % Neutrophils # (1.3-7.7) k/uL Lymphocytes # (1.0-4.8) k/uL PT (10.0-12.5) sec INR (<1.2) D-Dimer (<0.60) mg/L FEU Chloride (98-107) mmol/L Carbon Dioxide (22-30) mmol/L BUN 45 H (9-20) mg/dL Creatinine 1.37 H (0.66-1.25) mg/dL Glucose 147 H (74-99) mg/dL Plasma Lactic Acid Aj 3.1 H* 2.4 H* (0.7-2.0) mmol/L Calcium (8.4-10.2) mg/dL Creatine Kinase 51 L (55-170) U/L Albumin 2.9 L (3.5-5.0) g/dL Urine Protein (Negative) Urine Ketones (Negative) Urine Blood (Negative) Hyaline Casts (0-2) /lpf Urine Mucus (None) /hpf 10/25/23 10/25/23 10/25/23 Range/Units 04:58 06:12 09:13 WBC 16.6 H (3.8-10.6) k/uL RBC 3.40 L (4.30-5.90) m/uL Hgb 10.9 L (13.0-17.5) gm/dL Hct 32.8 L (39.0-53.0) % Neutrophils # (1.3-7.7) k/uL Lymphocytes # (1.0-4.8) k/uL PT (10.0-12.5) sec INR (<1.2) D-Dimer 1.60 H (<0.60) mg/L FEU Chloride 110 H (98-107) mmol/L Carbon Dioxide 21 L (22-30) mmol/L BUN 42 H (9-20) mg/dL Creatinine (0.66-1.25) mg/dL Glucose 153 H (74-99) mg/dL Plasma Lactic Acid Aj (0.7-2.0) mmol/L Calcium 7.6 L (8.4-10.2) mg/dL Creatine Kinase (55-170) U/L Albumin (3.5-5.0) g/dL Urine Protein (Negative) Urine Ketones (Negative) Urine Blood (Negative) Hyaline Casts (0-2) /lpf Urine Mucus (None) /hpf
--- NOTE | 2023-10-25 11:57 | P.CONS ---
History of Present Illness - Reason for Consult Consult date: 10/25/23 GI bleed Requesting physician: Richard Feliciano - Chief Complaint Generalized debility - History of Present Illness This is a pleasant 68-year-old male who reports he has been living alone with generalized weakness and debility for over the last 5 years. Past medical history includes COPD, pack and half per day smoker of 50 years. He does not follow with any primary care physician or any physicians for that matter. He has become extremely weak over the last several weeks states he has not had any food in the last 28 days due to decreased appetite and weakness. States that he is just been taking in fluids. Apparently friend of his did a well check and had found him on the floor covered in stool. Was reported that stool was dark. He was admitted for acute hypoxic respiratory failure community acquired pneumonia, acute on chronic COPD exacerbation and questionable GI bleed. Patient denies any history of GI bleed. He has had a colonoscopy about 5 years ago. Patient actually had EGD and colonoscopy with Dr. Gotti on 11/08/2018 for weight loss, dysphagia and screening colonoscopy. EGD findings included hiatal hernia, mild esophagitis and colonoscopy was significant for diverticulosis and sigmoid colon polyp. EGD biopsies reported chronic gastritis in the antrum and focal intestinal goblet cell metaplasia negative for dysplasia in the esophagus body. Sigmoid colon biopsy tubular adenoma. He denies any abdominal pain, nausea or vomiting. No rectal bleeding or further bowel movement since he has been to the hospital. States yesterday was quite large. States he has not been having very many bowel movements as he has not been eating. He has taken Aleve in the past for headaches. Denies any anticoagulation. He had a normal admitting hemoglobin of 13.8 hematocrit 43 and platelet count 369,000 INR 1.4 patient with elevated D-dimer. Stool occult blood positive he also had acute kidney injury on admission. In the afternoon gastroenterology was notified that patient had a large dark black bowel movement. Today's labs: WBC 16.6 hemoglobin 10.9 hematocrit 32.8 platelet count 266,000 D- dimer 1.6 sodium 137 potassium 4.2 BUN 42 creatinine 1.0 Review of Systems REVIEW OF SYSTEMS: CARDIOPULMONARY: No chest pain. Chronic shortness of breath. Gastrointestinal: No abdominal pain or epigastric pain. No nausea or vomiting. No hematemesis, coffee-ground emesis. No rectal bleeding, reportedly had dark stool. GENITOURINARY: No dysuria or hematuria. MUSCULOSKELETAL: Reports normal range of motion. SKIN: No rashes. No jaundice. ENDOCRINE: No chills, fevers. No excessive weight gain or loss. No polydipsia or polyuria. PSYCHIATRIC: Unremarkable. NEUROLOGY: No change in mental status. Denies dizziness, headache. ENT: Vision unremarkable. CONSTITUTIONAL: No recent weight loss. No fever, chills, night sweats. Past Medical History Past Medical History: COPD History of Any Multi-Drug Resistant Organisms: None Reported Past Surgical History: No Surgical Hx Reported Past Anesthesia/Blood Transfusion Reactions: No Reported Reaction Past Psychological History: No Psychological Hx Reported Smoking Status: Former smoker Past Alcohol Use History: None Reported Additional Past Alcohol Use History / Comment(s): Smoked 50 years ago Past Drug Use History: None Reported Additional Drug Use History / Comment(s): Stated used to do daily marijuana, denies usage now. - Past Family History Mother Family Medical History: Myocardial Infarction ([place]) Medications and Allergies Home Medications Medication Instructions Recorded Confirmed Type No Known Home Medications 10/24/23 10/24/23 History Allergies Allergy/AdvReac Type Severity Reaction Status Date / Time No Known Allergies Allergy Verified 10/24/23 11:40 Physical Exam Vitals: Vital Signs Temp Pulse Pulse Resp BP BP Pulse Ox 10/25/23 07:58 91 L 10/25/23 07:37 97.8 F 83 17 123/82 93 L 10/25/23 01:03 97.7 F 94 15 125/84 99 10/24/23 20:31 97.8 F 113 H 16 110/72 97 10/24/23 20:15 105 H 18 94/74 90 L 10/24/23 19:57 97.0 F L 107 H 20 101/77 90 L 10/24/23 17:00 105 H 16 114/72 94 L 10/24/23 15:00 118 H 14 116/94 94 L 10/24/23 14:54 121 H 10/24/23 14:48 120 H 10/24/23 14:00 118 H 13 119/106 10/24/23 13:30 97.3 F L 10/24/23 13:20 113 H 15 119/106 100 10/24/23 13:00 94 20 115/97 93 L 10/24/23 12:00 105 H 19 115/97 95 Intake and Output 10/24/23 10/25/23 10/25/23 22:59 06:59 14:59 Output Total 350 Balance -350 Output: Urine 350 Other: Voiding Method Urinal Urinal # Voids 1 # Bowel Movements 1 Weight 63.503 kg General appearance: The patient is alert, oriented, appears in no acute distress. Unkept, debilitated appearing HET: Head is normocephalic and atraumatic. Conjunctiva pink. Sclera anicteric. Neck: Supple without lymphadenopathy. Trachea midline. Heart: Regular. Lungs: Equal expansion, normal respiratory effort. Abdomen: Soft, thin, nontender, nondistended. Skin: No rashes. No jaundice. Extremities: Normal skin color and turgor. No pedal edema. Neurological: No focal deficits. Alert and oriented x3. Results CBC & Chem 7: 10/25/23 09:13 10/25/23 04:58 Labs: Abnormal Lab Results - Last 24 Hours (Table) 10/24/23 10/24/23 10/24/23 Range/Units 11:06 11:06 11:06 WBC 14.9 H (3.8-10.6) k/uL RBC (4.30-5.90) m/uL Hgb (13.0-17.5) gm/dL Hct (39.0-53.0) % Neutrophils # 13.4 H (1.3-7.7) k/uL Lymphocytes # 0.5 L (1.0-4.8) k/uL PT 14.8 H (10.0-12.5) sec INR 1.4 H (<1.2) D-Dimer (<0.60) mg/L FEU Chloride (98-107) mmol/L Carbon Dioxide (22-30) mmol/L BUN (9-20) mg/dL Creatinine (0.66-1.25) mg/dL Glucose (74-99) mg/dL Plasma Lactic Acid Aj (0.7-2.0) mmol/L Calcium (8.4-10.2) mg/dL Creatine Kinase (55-170) U/L Albumin (3.5-5.0) g/dL Urine Protein Trace H (Negative) Urine Ketones 1+ H (Negative) Urine Blood Moderate H (Negative) Hyaline Casts 13 H (0-2) /lpf Urine Mucus Occasional H (None) /hpf 10/24/23 10/24/23 10/24/23 Range/Units 11:06 11:06 16:16 WBC (3.8-10.6) k/uL RBC (4.30-5.90) m/uL Hgb (13.0-17.5) gm/dL Hct (39.0-53.0) % Neutrophils # (1.3-7.7) k/uL Lymphocytes # (1.0-4.8) k/uL PT (10.0-12.5) sec INR (<1.2) D-Dimer (<0.60) mg/L FEU Chloride (98-107) mmol/L Carbon Dioxide (22-30) mmol/L BUN 45 H (9-20) mg/dL Creatinine 1.37 H (0.66-1.25) mg/dL Glucose 147 H (74-99) mg/dL Plasma Lactic Acid Aj 3.1 H* 2.4 H* (0.7-2.0) mmol/L Calcium (8.4-10.2) mg/dL Creatine Kinase 51 L (55-170) U/L Albumin 2.9 L (3.5-5.0) g/dL Urine Protein (Negative) Urine Ketones (Negative) Urine Blood (Negative) Hyaline Casts (0-2) /lpf Urine Mucus (None) /hpf 10/25/23 10/25/23 10/25/23 Range/Units 04:58 06:12 09:13 WBC 16.6 H (3.8-10.6) k/uL RBC 3.40 L (4.30-5.90) m/uL Hgb 10.9 L (13.0-17.5) gm/dL Hct 32.8 L (39.0-53.0) % Neutrophils # (1.3-7.7) k/uL Lymphocytes # (1.0-4.8) k/uL PT (10.0-12.5) sec INR (<1.2) D-Dimer 1.60 H (<0.60) mg/L FEU Chloride 110 H (98-107) mmol/L Carbon Dioxide 21 L (22-30) mmol/L BUN 42 H (9-20) mg/dL Creatinine (0.66-1.25) mg/dL Glucose 153 H (74-99) mg/dL Plasma Lactic Acid Aj (0.7-2.0) mmol/L Calcium 7.6 L (8.4-10.2) mg/dL Creatine Kinase (55-170) U/L Albumin (3.5-5.0) g/dL Urine Protein (Negative) Urine Ketones (Negative) Urine Blood (Negative) Hyaline Casts (0-2) /lpf Urine Mucus (None) /hpf Comments: Chest x-ray reports COPD with bilateral lower infiltrates and small effusion. There is new questionable nodule in the right upper lobe adjacent to the area of scarring recommend CT of chest. Assessment and Plan (1) GI bleed Narrative/Plan: 68-year-old male found on the floor who has been experiencing generalized weakness and debilitation over the last 5 years duration. Does not follow with any physicians. Apparently patient had a large bowel movement yesterday and had been told it was dark. He denies any previous history of GI bleed. Had recent EGD and colonoscopy within the last 5 years. Patient has used NSAIDs in the past, no anticoagulation. Admitting hemoglobin stable with a slight drop today from 13.8-10.9. Patient admitted for COPD and pneumonia. Later in the day patient had another large black bowel movement. Concerns for possible upper GI bleed especially in light of NSAID use and poor nutrition. Will obtain anemia workup as well as plan for upper endoscopy tomorrow. Current Visit: Yes Status: Acute Code(s): K92.2 - GASTROINTESTINAL HEMORRHAGE, UNSPECIFIED SNOMED Code(s): 68035674 (2) Occult blood positive stool Narrative/Plan: 68-year-old male found on the floor who has been experiencing generalized weakness and debilitation over the last 5 years duration. Does not follow with any physicians. Apparently patient had a large bowel movement yesterday and had been told it was dark. He denies any previous history of GI bleed. Had recent EGD and colonoscopy within the last 5 years. Patient has used NSAIDs in the past, no anticoagulation. Admitting hemoglobin stable with a slight drop today from 13.8-10.9. Patient admitted for COPD and pneumonia. No further bowel movements and no rectal bleeding. Will treat symptomatically with PPI and continue to monitor hemoglobin and symptoms. Will allow further evaluation and workup for COPD and pneumonia. Current Visit: Yes Status: Acute Code(s): R19.5 - OTHER FECAL ABNORMALITIES SNOMED Code(s): 76059331 (3) Generalized weakness Current Visit: Yes Status: Acute Code(s): R53.1 - WEAKNESS SNOMED Code(s): 22664778 (4) COPD (chronic obstructive pulmonary disease) Current Visit: Yes Status: Acute Code(s): J44.9 - CHRONIC OBSTRUCTIVE PULMONARY DISEASE, UNSPECIFIED SNOMED Code(s): 06390639 (5) Pneumonia Current Visit: Yes Status: Acute Code(s): J18.9 - PNEUMONIA, UNSPECIFIED ORGANISM SNOMED Code(s): 781922424 Plan: 1. Continue symptomatic and supportive care 2. Daily CBC transfuse for hemoglobin less than 7 3. Protonix 40 mg daily 4. Avoid NSAIDs 5. Diet as tolerated, n.p.o. after midnight 6. Continue with recommendations from pulmonology 7. Plan on EGD tomorrow Thank you for this consultation, we will continue to follow. Dr. Jonh Busby I agree with the dictator's note, documented as a scribe by Daniella Upton.
[2023-10-25] MEDS: AZITHROMYCIN 500 MG TAB PO SCH (12:03)
--- NOTE | 2023-10-25 12:39 | CT ---
EXAMINATION TYPE: CT chest angio for PE CT DLP: 268.4 mGycm, Automated exposure control for dose reduction was used. DATE OF EXAM: 10/25/2023 11:50 AM COMPARISON: Chest radiograph from same day. Multiple CTs of the chest with most recent on . CLINICAL INDICATION:Male, 68 years old with history of D-Dimer; elevated d-dimer r/o PE TECHNIQUE/CONTRAST: CTA scan of the thorax is performed with IV Contrast, patient injected with 65 mL of Isovue 370, MIP images are created and reviewed these are created on a separate workstation.. FINDINGS: Pulmonary Artery: There is no evidence for a filling defect within the pulmonary vasculature to sugge st acute pulmonary embolism. The pulmonary artery is of normal size. Lungs/Pleura: There is consolidation in both lung bases as well as a moderate to left pleural effusio n and trace right pleural effusion Airway: Large airways are patent. Heart: Heart is within normal limits for size. Vasculature: No evidence of aortic aneurysm. Mediastinum: No gross evidence of adenopathy. Musculoskeletal: No acute osseous abnormalities Soft Tissues: Unremarkable. Lower neck: No significant findings. Upper Abdomen: No significant findings. IMPRESSION: 1. No evidence of pulmonary embolism. 2. Consolidation in the lung bases, left worse in the right with small to moderate left pleural effus ion.
[2023-10-25] MEDS ORDERED: ZINC OXIDE PASTE (Z-GUARD) 1 APPLIC TOPICAL PRN (13:10)
[2023-10-25 15:27] VITALS: BMI 19.5
[2023-10-26 05:48] LABS: HCT 30.6 % (39.0-53.0); HGB 9.8 gm/dL (13.0-17.5); Hypochromasia Slight; MCH 30.9 pg (25.0-35.0); MCHC 31.9 g/dL (31.0-37.0); MCV 97.1 fL (80.0-100.0); Mean Platelet Volume 9.8; Platelet Count 239 k/uL (150-450); RBC 3.15 m/uL (4.30-5.90); RDW 13.3 % (11.5-15.5); WBC 18.6 k/uL (3.8-10.6)
[2023-10-26 06:03] LABS: African American GFR (CKD) >90 (>60 ml/min/1.73 sqM); Anion Gap 5 mmol/L; Blood Urea Nitrogen 29 mg/dL (9-20); Calcium 7.7 mg/dL (8.4-10.2); Carbon Dioxide 25 mmol/L (22-30); Chloride 109 mmol/L (98-107); Glucose 129 mg/dL (74-99); Non-African American GFR(CKD) 88 (>60 ml/min/1.73 sqM); Potassium 3.8 mmol/L (3.5-5.1); Sodium 139 mmol/L (137-145)
--- NOTE | 2023-10-26 11:16 | P.PN ---
Subjective Progress Note Date: 10/26/23 67 year old M with PMH of a history of COPD and heavy smoking history presents to the ED. Reports smoking 1.5 PPD for the last 50 years. He has progressively been feeling more short of breath and mostly home bound because of this. He has seen Dr. Camara many years back but has not followed up with a physician in years. Patient reports not being able to get out of his chair for weeks. Today, his caregiver found him covered in stool which prompted him to call EMS. Stool was noted to be black in color. In the ED he underwent extensive evaluation. BP 100/61, HR 135, RR 17, T 97.3F, 94% on RA. During the encounter, patient desaturated into the 70s on 3 L NC. CBC, coag panel, CMP was done significant for WBC count 14.9, PT 14.8, INR 1.4, BUN 45, creatinine 1.37, glucose 147, albumin 2.9. Lactic acid 3.1. CPK 51. Urinalysis 1+ ketone, moderate blood. Stool for occult blood positive. Troponin 0.015. Chest x-ray findings of COPD with left basilar infiltrate, ectasia dilation ascending aorta, apical pleural nodularity. EKG sinus tachycardia with ventricular rate of 133. Patient is admitted for COPD exacerbation and GI bleed. 10/24 Patient was seen and examined. Reports improvement in his breathing. CBC WBC 16.6 Hg 10.9 Hct 32.8. BMP Cl 110, bicarb 21, BUN 42, glu 153, Ca 7.6. D- Dimer 1.60. Lactic acid 1.7. Discussed with Dr. Leiva, continue management, plans for CTA chest. 10/25 Patient was seen and examined. Improved breathing. No further bowel movements. Discussed with Daniella FARFAN, plans for EGD today. Discussed with Dr. Roberts, patient will need home O2 and placement with outpatient follow up. CTA chest shows no PE, consolidation in the lung bases L > R with small to moderate left pleural effusion. CBC WBC 18.6 Hg 9.8 Hct 30.6. BMP Cl 109, BUN 29, glu 129, Ca 7.7. Iron 60. Ferritin 1305. Pro-mauro 0.74. Maintained on Rocephin 2g IV QD, completed 3 days of Azithromycin. General: non toxic, no distress, appears at stated age Derm: warm, dry Head: atraumatic, normocephalic, symmetric Eyes: EOMI, no lid lag, anicteric sclera Mouth: no lip lesion, mucus membranes moist Cardiovascular: S1S2 tachy, no murmur Lungs: Decreased BS bilateral, no rhonchi, no rales , no accessory muscle use, pursed lip breathing Ext: no gross muscle atrophy, no edema, no contractures Neuro: no focal neuro deficits Psych: Alert, oriented, appropriate affect Based on my assessment of this patient, this patient meets a high complexity level of care. Patient has an acute diagnosis of acute hypoxic respiratory failure due to COPD exacerbation and GI bleed that poses a threat to life or bodily function. Acute hypoxic respiratory failure: Likely due to below. CTA chest negative for PE. Sepsis secondary to community acquired PNA: Leukocytosis, tachycardia, + source of infection. Continue Rocephin 2g IV QD (D3) Complete 3 days of Azithromycin today. Sputum, Blood Cx, Legionella negative so far. Telemetry monitoring. NS at 75 cc/hr. Pulmonary on board. Acute on chronic COPD exacerbation: DuoNeb scheduled. Solumedrol 60 mg IV Q6H. Upper GI bleed: Protonix 40 mg IV BID. Trend Hg. GI on board, plans for EGD today. Acute kidney injury: IV hydration as above. Supratherapeutic INR CODE STATUS: NO CODE. DVT Prophylaxis: Heparin GI Prophylaxis: Protonix IV Designated medical POA if patient is not able to make medical decisions for themselves: Dmitri (friend) I have reviewed the following funeral pre need consultant notes: Pulmonary, GI. I have reviewed the results of the following tests: CBC, BMP, Iron studies, CTA chest, Pro-mauro I have ordered the following tests: I have discussed the care of this patient with the following independent historian: RN I have independently interpreted the following test below: I have discussed the management of this patient with the following physician: Daniella Peck AGENCY SALES REPRESENTATIVE with GI. Objective - Vital Signs Vital signs: Vital Signs Temp 98.2 F 10/26/23 07:10 Pulse 92 10/26/23 08:16 Resp 18 10/26/23 08:16 BP 152/85 10/26/23 07:10 Pulse Ox 100 10/26/23 08:50 FiO2 Intake & Output 10/25/23 10/26/23 10/26/23 18:59 06:59 18:59 Intake Total 950 Output Total 800 Balance 950 -800 Weight 63.503 kg Intake: Intake, IV Titration 950 Amount Sodium Chloride 0.9% 1, 900 000 ml @ 75 mls/hr IV . [id number] [facility] Rx#:[id number] cefTRIAXone 2 gm In 50 Sodium Chloride 0.9% 50 ml @ 100 mls/hr IVPB Q24HR [facility] Rx#:[id number] Output: Urine 800 Other: Voiding Method Urinal Urinal Urinal # Voids 3 # Bowel Movements 2 - Labs CBC & Chem 7: 10/26/23 04:49 10/26/23 04:49 Labs: Abnormal Lab Results - Last 24 Hours (Table) 10/26/23 10/26/23 10/26/23 Range/Units 04:49 04:49 04:49 WBC 18.6 H (3.8-10.6) k/uL RBC 3.15 L (4.30-5.90) m/uL Hgb 9.8 L (13.0-17.5) gm/dL Hct 30.6 L (39.0-53.0) % Chloride (98-107) mmol/L BUN (9-20) mg/dL Glucose (74-99) mg/dL Calcium (8.4-10.2) mg/dL Iron 60 L (65-175) UG/DL TIBC 150 L (228-460) UG/DL Transferrin 107.0 L (204.0-354.0) mg/dL Ferritin 1305.0 H (22.0-322.0) ng/mL Procalcitonin 0.74 H (0.02-0.09) ng/mL 10/26/23 Range/Units 04:49 WBC (3.8-10.6) k/uL RBC (4.30-5.90) m/uL Hgb (13.0-17.5) gm/dL Hct (39.0-53.0) % Chloride 109 H (98-107) mmol/L BUN 29 H (9-20) mg/dL Glucose 129 H (74-99) mg/dL Calcium 7.7 L (8.4-10.2) mg/dL Iron (65-175) UG/DL TIBC (228-460) UG/DL Transferrin (204.0-354.0) mg/dL Ferritin (22.0-322.0) ng/mL Procalcitonin (0.02-0.09) ng/mL Microbiology - Last 24 Hours (Table) 10/24/23 13:21 Blood Culture - Preliminary Blood 10/24/23 13:00 Blood Culture - Preliminary Blood 10/24/23 22:00 Gram Stain - Preliminary Sputum
--- NOTE | 2023-10-26 12:26 | P.PN ---
Subjective Progress Note Date: 10/26/23 Nothing else this is a 68-year-old male patient, known history of COPD who quit smoking back in 2018. Nevertheless, the patient advanced bullous emphysema. He used to follow-up with Dr. ESTEFANY Camara in the past and he stopped all medical care and he has not seen a physician for quite some time. He has been living at home and he got to a point where it became very difficult to take care of himself. Currently is unable to move and walk more than few feet. Apparently, he has not gotten out of his chair for several weeks he has not been eating or drinking. He was getting food brought to him in the past. His friend came in to check on him today and he was found to be very weak, debilitated and covered in stools and based on that, EMS was called to the scene and the patient was brought into the hospital. The patient denies having any acute worsening in shortness of breath. He has a chronic cough and congestion and wheeze. He has quit using his respiratory medication for several years. No reported aspiration. 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 I was able to retrieve his old CAT scan of the chest from 2019 and back then the patient was found to have bullous emphysema with upper lobe predominance and his emphysema was quite advanced. There was also areas of scarring specially in the apices bilaterally. No evidence of any malignancy back then. The repeat chest x-ray that was done in the emergency department today showed COPD with some left ba silar infiltration and small effusion. He had ectasia of the ascending aorta along with chronic stable pleural nodular changes and scarring that were present and unchanged since 2019. The patient is has been in a very poor living condition. He also tells me that he is going to be evicted from his apartment. He has no chest pain. No edema lower extremities. No palpitation. Denies having any previous history of cardiac disease. The white cell count of 14.9 with hemoglobin 13.8 and a platelet count of 369. INR is 1.4 with a PT of 14.8. Lactic acid level at time of admission was 3.1. BUN was 45 with a creatinine of 1.37 and sodium levels of 139. UA showing +1 ketones, occult stool was positive. The patient was started on IV Rocephin. The patient was started on albuterol nebulized treatments [id number]. The viral panel has not been done. On today's evaluation of 10/25/2023, the patient's condition is stable. No new complaints. Repeat chest x-ray was done today and the patient was found to have stable findings with lower lobe pulm infiltrates and small left-sided pleural effusion along with background COPD. Questionable right upper lobe nodule versus scarring. The patient remains on IV Rocephin. Remains on IV Solu- Medrol. Remains on DuoNeb updrafts. Receiving IV fluids. The white cell count is 16.6 with a hemoglobin of 10.9. D-dimer was at 1.6. BUN is at 42 with a creatinine of 1 and there is improvement in the renal function. Serum bicarb is at 21 with a sodium level of 137. Troponins are negative. No evidence of any GI bleeding. Hemoglobin has dropped down to 10.9, could be dilutional. On today's evaluation of 10/26/2023, the patient is being seen for a follow-up. The patient is feeling essentially stable. No interval worsening shortness of breath. He remains on 5 L of oxygen by nasal cannula. CTA of the chest was done yesterday that showed no evidence of any pulmonary embolism. There was extensive bullous emphysema with upper lobe predominance noted on the CAT scan of the chest and there was a small left-sided pleural effusion and a trace right-sided pleural effusion along with some patchy masslike consolidation involving the right lower lobe and the right midlung area. Suspect pneumonia. The patient remains on IV Rocephin. Remains on IV Solu-Medrol. Remains on DuoNeb updrafts. Suspect GI bleed and the patient is going to undergo an EGD today. Hemoglobin is stable at 9.8, slightly dropped from yesterday with a wh ite cell count of 18.6 and a platelet count of 239. BUN is 29 with a creatinine of 0.88 and a sodium levels at 139. Currently n.p.o. awaiting an EGD Objective - Vital Signs Vital signs: Vital Signs Temp 98.2 F 10/26/23 07:10 Pulse 92 10/26/23 07:10 Resp 18 10/26/23 07:10 BP 152/85 10/26/23 07:10 Pulse Ox 100 03/20/24 08:50 FiO2 Intake & Output 10/25/23 10/26/23 10/26/23 18:59 06:59 18:59 Intake Total 950 Output Total 800 Balance 950 -800 Weight 63.503 kg Intake: Intake, IV Titration 950 Amount Sodium Chloride 0.9% 1, 900 000 ml @ 75 mls/hr IV . [id number] NAV Rx#:[id number] cefTRIAXone 2 gm In 50 Sodium Chloride 0.9% 50 ml @ 100 mls/hr IVPB Q24HR NAV Rx#:[id number] Output: Urine 800 Other: Voiding Method Urinal Urinal # Voids 3 # Bowel Movements 2 - Exam Debilitated, cachectic and weak, in a very poor hygienic state and not in acute respiratory distress. Awake and alert and communicating. Head exam was generally normal. There was no scleral icterus or corneal arcus. Mucous membranes were moist. Neck was supple and without jugular venous distension, thyromegaly, or carotid bruits. Carotids were easily palpable bilaterally. There was no adenopathy. Lung sounds are diminished bilaterally and the patient has minimal in the lung bases bilaterally. Scant expiratory wheezes. He has a barrel chest. Heart sounds are tachycardic, regular, positive S1-S2 and there is no significant murmurs appreciated and the patient's heart sounds are distant. Abdominal exam revealed normal bowel sounds. The abdomen was soft, non-tender, and without masses, organomegaly, or appreciable enlargement of the abdominal aorta. Examination of the extremities revealed easily palpable radial, femoral and pedal pulses. There was no cyanosis, clubbing or edema. Examination of the extremities revealed easily palpable radial, femoral and pedal pulses. There was no cyanosis, clubbing or edema. examination of the skin revealed no evidence of significant rashes, suspicious appearing nevi or other concerning lesions. Neurologically, the patient is awake and alert and the patient does not have any focal neurological deficit. Cranial nerves are essentially intact. - Labs CBC & Chem 7: 10/26/23 04:49 10/26/23 04:49 Labs: Abnormal Lab Results - Last 24 Hours (Table) 10/25/23 10/26/23 10/26/23 Range/Units 09:13 04:49 04:49 WBC 16.6 H (3.8-10.6) k/uL RBC 3.40 L (4.30-5.90) m/uL Hgb 10.9 L (13.0-17.5) gm/dL Hct 32.8 L (39.0-53.0) % Chloride (98-107) mmol/L BUN (9-20) mg/dL Glucose (74-99) mg/dL Calcium (8.4-10.2) mg/dL Iron 60 L (65-175) UG/DL TIBC 150 L (228-460) UG/DL Transferrin 107.0 L (204.0-354.0) mg/dL Ferritin 1305.0 H (22.0-322.0) ng/mL Procalcitonin 0.74 H (0.02-0.09) ng/mL 10/26/23 10/26/23 Range/Units 04:49 04:49 WBC 18.6 H (3.8-10.6) k/uL RBC 3.15 L (4.30-5.90) m/uL Hgb 9.8 L (13.0-17.5) gm/dL Hct 30.6 L (39.0-53.0) % Chloride 109 H (98-107) mmol/L BUN 29 H (9-20) mg/dL Glucose 129 H (74-99) mg/dL Calcium 7.7 L (8.4-10.2) mg/dL Iron (65-175) UG/DL TIBC (228-460) UG/DL Transferrin (204.0-354.0) mg/dL Ferritin (22.0-322.0) ng/mL Procalcitonin (0.02-0.09) ng/mL Microbiology - Last 24 Hours (Table) 10/24/23 13:21 Blood Culture - Preliminary Blood 10/24/23 13:00 Blood Culture - Preliminary Blood 10/24/23 22:00 Gram Stain - Preliminary Sputum Assessment and Plan Plan: Acute hypoxic respiratory failure and he is on 02 at 5 L/min nasal cannula, this is multifactorial. The patient advanced bullous emphysema with suspected superinfection/pneumonia. The patient has small bilateral pleural effusions worse on the left and patchy areas of masslike consolidations which could be potentially malignancy versus infection versus scarring. No previous CAT scans for comparison. Currently on IV Rocephin. No evidence of any pulmonary embolism. COPD exacerbation, currently on bronchodilators steroids and antibiotics and the patient is currently on IV Rocephin, D-dimer is mildly elevated. CTA shows no evidence of any PE. Advanced bullous emphysema, with diffuse emphysematous change in the upper lobes bilaterally along with apical scarring Left lower lobe pulm infiltrate and effusion, new finding compared with previous x-ray from 2019. This has been also confirmed by the CAT scan of the chest Acute dehydration, essentially due to diminished oral intake, improving Acute lactic acidosis Acute leukocytosis likely secondary to above, improving Anemia with a positive occult blood in the stool. Rule out underlying upper GI bleed. Mild coagulopathy with INR of 1.4, could be dietary and nutritional Acute kidney injury, improving, and the creatinine is normalized Sinus tachycardia secondary to above, improving Poor living conditions, unable to take care of himself Plan CT of the chest will be obtained and the results were noted. Will continue the IV Rocephin for now Titrate oxygen flow to maintain saturation above 90%, currently on 4 to 5 L of O2 nasal cannula Continue albuterol/ipratropium nebulized treatments [id number] 4 times a d ay IV Solu-Medrol 60 mg every 6 hours IV Rocephin as an empiric antibiotic coverage IV fluids to be continued Renal function has normalized EGD today to evaluate and workup this patient for GI bleeding Monitor hemoglobin Social work consult and case management to assess his living conditions Heparin subcu for DVT prophylaxis Will continue to follow
[2023-10-26] MEDS ORDERED: LIDOCAINE 1% INJ 10MG/ML (20 ML MDV) ONE (14:16)
[2023-10-26] MEDS ORDERED: PROPOFOL 10 MG/ML 20 ML VIAL IV ONE (14:16)
[2023-10-26] MEDS: IV FLUID CONTINUATION 1,000 ML IV ONE (14:17)
--- NOTE | 2023-10-26 14:30 | P.PCN ---
Date of Procedure: 10/26/23 Procedure(s) Performed: BRIEF HISTORY: Patient is a 68-year-old, pleasant, white male scheduled for an upper endoscopy as a part of evaluation of the episodes of black tarry stools for the last 2 days' duration. Initial hemoglobin was 13 and subsequently dropped to 9 g/dL. Because of clinical suspicion for upper GI bleed he scheduled for an upper endoscopy. PROCEDURE PERFORMED: Esophagogastroduodenoscopy with biopsy.. PREOPERATIVE DIAGNOSIS: Melena 2 days' duration. IV sedation per anesthesia. PROCEDURE: After informed consent was obtained, the patient was brought into the endoscopy unit. IV sedation was administered by Anesthesia under continuous monitoring. Initially the Olympus GIF-140 video endoscope was inserted into the mouth. Esophagus intubated without any difficulty. It was gradually advanced into the stomach and duodenum and carefully examined. The bulb of the duodenum had mild duodenitis and the second part of the duodenum appeared normal. The scope at this time was withdrawn to the stomach, adequately insufflated with air, and upon careful examination, mucosa of the antrum, had 2 small ulcers measuring 5 mm and 1 cm in size in the prepyloric area with no active bleeding. Biopsies were done from the ulcer. There was also mild antral gastritis noted. Mucosa of the body, cardia and the fundus appeared normal. The scope was then withdrawn into the esophagus. Mall hiatal hernia noted. The GE junction was located at 39 cm from the incisors. The esophagus appeared normal. There were no erosions or ulcerations seen and the patient tolerated the procedure well. IMPRESSION: 1. 5 mm and 1 cm clean-based antral ulcers with no active bleeding. 2. Mild antral gastritis and duodenitis 3. Small hiatal hernia. RECOMMENDATIONS: The findings of this examination were discussed with the patient as well as his family. Follow with the biopsy results. Continue with Protonix 40 mg daily. Avoid NSAIDs. Advance to regular diet..
--- NOTE | 2023-10-27 15:31 | P.PN ---
Subjective Progress Note Date: 10/27/23 Principal diagnosis: GI bleed This is a pleasant 68-year-old male who reports he has been living alone with generalized weakness and debility for over the last 5 years. Past medical history includes COPD, pack and half per day smoker of 50 years. He does not follow with any primary care physician or any physicians for that matter. He has become extremely weak over the last several weeks states he has not had any food in the last 28 days due to decreased appetite and weakness. States that he is just been taking in fluids. Apparently friend of his did a well check and h ad found him on the floor covered in stool. Was reported that stool was dark. He was admitted for acute hypoxic respiratory failure community acquired pneumonia, acute on chronic COPD exacerbation and questionable GI bleed. Patient denies any history of GI bleed. He has had a colonoscopy about 5 years ago. Patient actually had EGD and colonoscopy with Dr. Gotti on 11/08/2018 for weight loss, dysphagia and screening colonoscopy. EGD findings included hiatal hernia, mild esophagitis and colonoscopy was significant for diverticulosis and sigmoid colon polyp. EGD biopsies reported chronic gastritis in the antrum and focal intestinal goblet cell metaplasia negative for dysplasia in the esophagus body. Sigmoid colon biopsy tubular adenoma. He denies any abdominal pain, nausea or vomiting. No rectal bleeding or further bowel movement since he has been to the hospital. States yesterday was quite large. States he has not been having very many bowel movements as he has not been eating. He has taken Aleve in the past for headaches. Denies any anticoagulation. He had a normal admit ting hemoglobin of 13.8 hematocrit 43 and platelet count 369,000 INR 1.4 patient with elevated D-dimer. Stool occult blood positive he also had acute kidney injury on admission. In the afternoon gastroenterology was notified that patient had a large dark black bowel movement. Today's labs: WBC 16.6 hemoglobin 10.9 hematocrit 32.8 platelet count 266,000 D- dimer 1.6 sodium 137 potassium 4.2 BUN 42 creatinine 1.0 09/28/2023 Patient seen and examined today as a follow-up. Yesterday he underwent EGD with findings of 2 clean-based antral ulcers with no active bleeding, mild antral gastritis and duodenitis as well as small hiatal hernia. Patient will continue on 40 mg of Protonix daily. He denies any abdominal pain, nausea or vomiting. States no bowel movement today no rectal bleeding. Hemoglobin stable at 9.8. Objective - Vital Signs Vital signs: Vital Signs Temp 97.6 F 10/27/23 07:06 Pulse 67 10/27/23 07:20 Resp 18 10/27/23 07:20 BP 149/89 10/27/23 07:06 Pulse Ox 96 10/27/23 08:30 FiO2 Intake & Output 10/26/23 10/27/23 10/27/23 18:59 06:59 18:59 Intake Total 200 Output Total 200 800 200 Balance 0 -800 -200 Intake: IV 200 Output: Urine 200 800 200 Stool 0 0 Other: Voiding Method Urinal Urinal # Voids 1 1 # Bowel Movements 0 - Exam General appearance: The patient is alert, oriented, appears in no acute distress. HET: Head is normocephalic and atraumatic. Conjunctiva pink. Sclera anicteric. Neck: Supple without lymphadenopathy. Abdomen: Soft, nontender, nondistended with bowel sounds. No guarding or rigidity. Extremities: Normal skin color and turgor. No pedal edema Skin: No rashes, no jaundice Neurological: No focal deficits. Alert and oriented. - Labs CBC & Chem 7: 10/26/23 04:49 10/26/23 04:49 Labs: Microbiology - Last 24 Hours (Table) 10/24/23 13:21 Blood Culture - Preliminary Blood 10/24/23 13:00 Blood Culture - Preliminary Blood Assessment and Plan (1) GI bleed Narrative/Plan: 68-year-old male found on the floor who has been experiencing generalized weakness and debilitation over the last 5 years duration. Does not follow with any physicians. Apparently patient had a large bowel movement yesterday and had been told it was dark. He denies any previous history of GI bleed. Had recent EGD and colonoscopy within the last 5 years. Patient has used NSAIDs in the past, no anticoagulation. Admitting hemoglobin stable with a slight drop today from 13.8-10.9. Patient admitted for COPD and pneumonia. Later in the day patient had another large black bowel movement. Concerns for possible upper GI bleed especially in light of NSAID use and poor nutrition. Will obtain anemia workup as well as plan for upper endoscopy tomorrow. 09/28/2023 Status post upper endoscopy with findings of 2 clean-based antral ulcers with no active bleeding. Will continue Protonix 40 mg daily. Patient to follow-up in the office for biopsy results. Current Visit: Yes Status: Acute Code(s): K92.2 - GASTROINTESTINAL HEMORRHAGE, UNSPECIFIED SNOMED Code(s): 59047240 (2) Occult blood positive stool Current Visit: Yes Status: Acute Code(s): R19.5 - OTHER FECAL ABNORMALITIES SNOMED Code(s): 15520177 (3) Generalized weakness Current Visit: Yes Status: Acute Code(s): R53.1 - WEAKNESS SNOMED Code(s): 01933865 (4) COPD (chronic obstructive pulmonary disease) Current Visit: Yes Status: Acute Code(s): J44.9 - CHRONIC OBSTRUCTIVE PULMONARY DISEASE, UNSPECIFIED SNOMED Code(s): 92248650 (5) Pneumonia Current Visit: Yes Status: Acute Code(s): J18.9 - PNEUMONIA, UNSPECIFIED ORGANISM SNOMED Code(s): 233032493 Plan: 1. Continue symptomatic and supportive care 2. Diet as tolerated 3. Protonix 40 mg daily 4. Patient is status post upper endoscopy with biopsy 5. Patient instructed to follow-up with gastroenterology in 1 to 2 weeks for biopsy results. Patient verbalized understanding Thank you for this consultation, patient is cleared from gastroenterology for discharge. We will sign off at this time. Dr. Jonh Busby I agree with the dictator's note, documented as a scribe by Daniella Upton.
--- NOTE | 2023-10-27 16:35 | P.PN ---
Subjective Progress Note Date: 10/27/23 No new complaints today. Pending placement per CM. Gen: In NAD, non-toxic HEENT: normocephalic, atraumatic, hearing acuity is intant, mucous membranes moist CVS: perfusing all extremities well, no pitting edema, Respiratory: symmetric chest expansion, no accessory muscle use, quiet lung sounds GI: soft, NTTP, ND, : no suprapubic tenderness, no CVA tenderness MSK/Derm: no rashes, cyanosis Neuro: CN II-XII intact, no motor weakness, Psych: cooperative, euthymic mood, judgment and insight is intact Hospital course: 67 year old M with PMH of a history of COPD and heavy smoking history presents to the ED. Reports smoking 1.5 PPD for the last 50 years. He has progressively been feeling more short of breath and mostly home bound because of this. He has seen Dr. Camara many years back but has not followed up with a physician in years. Patient reports not being able to get out of his chair for weeks. Today, his caregiver found him covered in stool which prompted him to call EMS. Stool was noted to be black in color. In the ED he underwent extensive evaluation. BP 100/61, HR 135, RR 17, T 97.3F, 94% on RA. During the encounter, patient desaturated into the 70s on 3 L NC. CBC, coag panel, CMP was done significant for WBC count 14.9, PT 14.8, INR 1.4, BUN 45, creatinine 1.37, glucose 147, albumin 2.9. Lactic acid 3.1. CPK 51. Urinalysis 1+ ketone, moderate blood. Stool for occult blood positive. Troponin 0.015. Chest x-ray findings of COPD with left basilar infiltrate, ectasia dilation ascending aorta, apical pleural nodularity. EKG sinus tachycardia with ventricular rate of 133. Patient is admitted for COPD exacerbation and GI bleed. 10/24 Patient was seen and examined. Reports improvement in his breathing. CBC WBC 16.6 Hg 10.9 Hct 32.8. BMP Cl 110, bicarb 21, BUN 42, glu 153, Ca 7.6. D- Dimer 1.60. Lactic acid 1.7. Discussed with Dr. Leiva, continue management, p lans for CTA chest. 10/25 Patient was seen and examined. Improved breathing. No further bowel moveme nts. Discussed with Daniella FARFAN, plans for EGD today. Discussed with Dr. Roberts, patient will need home O2 and placement with outpatient follow up. CTA chest shows no PE, consolidation in the lung bases L > R with small to moderate left pleural effusion. CBC WBC 18.6 Hg 9.8 Hct 30.6. BMP Cl 109, BUN 29, glu 129, Ca 7.7. Iron 60. Ferritin 1305. Pro-mauro 0.74. Maintained on Rocephin 2g IV QD, completed 3 days of Azithromycin. Assessment/plan: Acute hypoxic respiratory failure: Sepsis secondary to community acquired PNA: -Likely due to below. -CTA chest negative for PE. -Rocephin 2g IV QD (D3) discontinued and switched to cefepime due to + Sputum with pseudomonas; Blood Cx, Legionella negative so far. Telemetry monitoring. -NS at 75 cc/hr. Pulmonary on board. Acute on chronic COPD exacerbation: -DuoNeb scheduled. -Solumedrol 60 mg IV Q6H. Upper GI bleed: -Protonix 40 mg IV BID. Trend Hg. GI on board, plans for EGD today. Acute kidney injury: IV hydration as above. CODE STATUS: NO CODE. DVT Prophylaxis: Heparin GI Prophylaxis: Protonix IV Designated medical POA if patient is not able to make medical decisions for themselves: Dmitri (friend) Objective - Vital Signs Vital signs: Vital Signs Temp 97.6 F 10/27/23 13:28 Pulse 85 10/27/23 13:28 Resp 18 10/27/23 13:28 BP 131/83 10/27/23 13:28 Pulse Ox 94 L 10/27/23 13:28 FiO2 Intake & Output 10/26/23 10/27/23 10/27/23 18:59 06:59 18:59 Intake Total 200 Output Total 200 800 200 Balance 0 -800 -200 Intake: IV 200 Output: Urine 200 800 200 Stool 0 0 Other: Voiding Method Urinal Urinal # Voids 1 1 # Bowel Movements 0 - Labs CBC & Chem 7: 10/26/23 04:49 10/26/23 04:49 Labs: Microbiology - Last 24 Hours (Table) 10/24/23 22:00 Gram Stain - Final Sputum Sputum Culture - Final Pseudomonas aeruginosa 10/24/23 13:21 Blood Culture - Preliminary Blood 10/24/23 13:00 Blood Culture - Preliminary Blood
[2023-10-27] MEDS: CEFEPIME 2 GM in SODIUM CHLORIDE 0.9% 100 ML IVPB SCH (17:01)
--- NOTE | 2023-10-27 17:56 | P.PN ---
Subjective Progress Note Date: 10/27/23 Nothing else this is a 68-year-old male patient, known history of COPD who quit smoking back in 2018. Nevertheless, the patient advanced bullous emphysema. He used to follow-up with Dr. ESTEFANY Camara in the past and he stopped all medical care and he has not seen a physician for quite some time. He has been living at home and he got to a point where it became very difficult to take care of himself. Currently is unable to move and walk more than few feet. Apparently, he has not gotten out of his chair for several weeks he has not been eating or drinking. He was getting food brought to him in the past. His friend came in to check on him today and he was found to be very weak, debilitated and covered in stools and based on that, EMS was called to the scene and the patient was brought into the hospital. The patient denies having any acute worsening in shortness of breath. He has a chronic cough and congestion and wheeze. He has quit using his respiratory medication for several years. No reported aspiration. 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 I was able to retrieve his old CAT scan of the chest from 2019 and back then the patient was found to have bullous emphysema with upper lobe predominance and his emphysema was quite advanced. There was also areas of scarring specially in the apices bilaterally. No evidence of any malignancy back then. The repeat chest x-ray that was done in the emergency department today showed COPD with some left ba silar infiltration and small effusion. He had ectasia of the ascending aorta along with chronic stable pleural nodular changes and scarring that were present and unchanged since 2019. The patient is has been in a very poor living condition. He also tells me that he is going to be evicted from his apartment. He has no chest pain. No edema lower extremities. No palpitation. Denies having any previous history of cardiac disease. The white cell count of 14.9 with hemoglobin 13.8 and a platelet count of 369. INR is 1.4 with a PT of 14.8. Lactic acid level at time of admission was 3.1. BUN was 45 with a creatinine of 1.37 and sodium levels of 139. UA showing +1 ketones, occult stool was positive. The patient was started on IV Rocephin. The patient was started on albuterol nebulized treatments [id number]. The viral panel has not been done. On today's evaluation of 10/25/2023, the patient's condition is stable. No new complaints. Repeat chest x-ray was done today and the patient was found to have stable findings with lower lobe pulm infiltrates and small left-sided pleural effusion along with background COPD. Questionable right upper lobe nodule versus scarring. The patient remains on IV Rocephin. Remains on IV Solu- Medrol. Remains on DuoNeb updrafts. Receiving IV fluids. The white cell count is 16.6 with a hemoglobin of 10.9. D-dimer was at 1.6. BUN is at 42 with a creatinine of 1 and there is improvement in the renal function. Serum bicarb is at 21 with a sodium level of 137. Troponins are negative. No evidence of any GI bleeding. Hemoglobin has dropped down to 10.9, could be dilutional. On today's evaluation of 10/26/2023, the patient is being seen for a follow-up. The patient is feeling essentially stable. No interval worsening shortness of breath. He remains on 5 L of oxygen by nasal cannula. CTA of the chest was done yesterday that showed no evidence of any pulmonary embolism. There was extensive bullous emphysema with upper lobe predominance noted on the CAT scan of the chest and there was a small left-sided pleural effusion and a trace right-sided pleural effusion along with some patchy masslike consolidation involving the right lower lobe and the right midlung area. Suspect pneumonia. The patient remains on IV Rocephin. Remains on IV Solu-Medrol. Remains on DuoNeb updrafts. Suspect GI bleed and the patient is going to undergo an EGD today. Hemoglobin is stable at 9.8, slightly dropped from yesterday with a wh ite cell count of 18.6 and a platelet count of 239. BUN is 29 with a creatinine of 0.88 and a sodium levels at 139. Currently n.p.o. awaiting an EGD On today's evaluation of 10/27/2023, the patient is resting comfortably in bed. Oxygen requirements improved compared to yesterday and the patient is currently on 2 L of O2 nasal cannula. The patient had a CT angiogram that showed evidence of any pulm embolism and the patient remains on IV Rocephin. No other new complaints otherwise for now. Resting comfortably in bed. Remains on DuoNeb updrafts, remains on IV Solu-Medrol and the patient is also covered IV cefepime as the patient did not have Pseudomonas in his sputum. The blood cultures are negative thus far. On a separate note, the patient underwent an EGD yesterday and the patient was found to have 5 mm and 1 cm clean-based ulcers in the antrum of the stomach. Mild gastritis and duodenitis. Small hiatal hernia and the patient remains on PPI. Hemoglobin t from yesterday was at 9.8. White cell count at 18.6. No new labs are available from today. Objective - Vital Signs Vital signs: Vital Signs Temp 97.6 F 10/27/23 07:06 Pulse 67 10/27/23 07:20 Resp 18 10/27/23 07:20 BP 149/89 10/27/23 07:06 Pulse Ox 96 10/27/23 08:30 FiO2 Intake & Output 10/26/23 10/27/23 10/27/23 18:59 06:59 18:59 Intake Total 200 Output Total 200 800 200 Balance 0 -800 -200 Intake: IV 200 Output: Urine 200 800 200 Stool 0 0 Other: Voiding Method Urinal Urinal # Voids 1 1 # Bowel Movements 0 - Exam Debilitated, cachectic and weak, in a very poor hygienic state and not in acute respiratory distress. Awake and alert and communicating. The patient is currently on 2 L of O2 nasal cannula Head exam was generally normal. There was no scleral icterus or corneal arcus. Mucous membranes were moist. Neck was supple and without jugular venous distension, thyromegaly, or carotid bruits. Carotids were easily palpable bilaterally. There was no adenopathy. Lung sounds are diminished bilaterally and the patient has minimal in the lung bases bilaterally. Scant expiratory wheezes. He has a barrel chest. Heart sounds are tachycardic, regular, positive S1-S2 and there is no significant murmurs appreciated and the patient's heart sounds are distant. Abdominal exam revealed normal bowel sounds. The abdomen was soft, non-tender, and without masses, organomegaly, or appreciable enlargement of the abdominal aorta. Examination of the extremities revealed easily palpable radial, femoral and pedal pulses. There was no cyanosis, clubbing or edema. Examination of the extremities revealed easily palpable radial, femoral and pedal pulses. There was no cyanosis, clubbing or edema. examination of the skin revealed no evidence of significant rashes, suspicious appearing nevi or other concerning lesions. Neurologically, the patient is awake and alert and the patient does not have any focal neurological deficit. Cranial nerves are essentially intact. - Labs CBC & Chem 7: 10/26/23 04:49 10/26/23 04:49 Labs: Microbiology - Last 24 Hours (Table) 10/24/23 13:21 Blood Culture - Preliminary Blood 10/24/23 13:00 Blood Culture - Preliminary Blood Assessment and Plan Plan: Acute hypoxic respiratory failure and he is on 02 at 2 L/min nasal cannula, this is multifactorial. The patient advanced bullous emphysema with suspected superinfection/pneumonia. The patient has small bilateral pleural effusions worse on the left and patchy areas of masslike consolidations which could be potentially malignancy versus infection versus scarring. The sputum was positive for Pseudomonas. Rule out pseudomonal pneumonia Pseudomonal left lower lobe pneumonia, currently on IV cefepime COPD exacerbation, currently on bronchodilators steroids and antibiotics and the patient is currently on IV Rocephin, D-dimer is mildly elevated. CTA shows no evidence of any PE. Advanced bullous emphysema, with diffuse emphysematous change in the upper lobes bilaterally along with apical scarring Left lower lobe pulm infiltrate and effusion, new finding compared with previous x-ray from 2019. This has been also confirmed by the CAT scan of the chest Acute dehydration, essentially due to diminished oral intake, improving Acute lactic acidosis Acute leukocytosis likely secondary to above, improving Anemia with a positive occult blood in the stool. EGD was completed and the results were noted Mild coagulopathy with INR of 1.4, could be dietary and nutritional Acute kidney injury, improving, and the creatinine is normalized Sinus tachycardia secondary to above, improving Poor living conditions, unable to take care of himself Gastric antral ulcers nonbleeding measuring 5 and 10 mm in size and the patient also has some mild antral gastritis and duodenitis Plan CT of the chest will be obtained and the results were noted. Sputum sample cultures were noted Patient was started on IV cefepime Titrate oxygen flow to maintain saturation above 90%, currently on 2 L of O2 nasal cannula Continue albuterol/ipratropium nebulized treatments [id number] 4 times a day IV Solu-Medrol 60 mg every 6 hours, will start tapering steroids as of tomorrow IV fluids to be continued Repeat hemoglobin in a.m. Renal function has normalized Social work consult and case management to assess his living conditions Heparin subcu for DVT prophylaxis Will continue to follow
[2023-10-27 20:43] LABS: Glucose,Whole Blood 169 mg/dL (70-110)
[2023-10-28 07:44] VITALS: RESP 18
[2023-10-28 11:46] LABS: Basophils # (A) 0.02 X 10*3/uL (0.00-0.10); Basophils % (A) 0.1 %; Eosinophils # (A) 0.02 X 10*3/uL (0.04-0.35); Eosinophils % (A) 0.1 %; HGB 9.4 g/dL (13.0-17.0); Lymphocytes # (A) 0.43 X 10*3/uL (0.90-5.00); Lymphocytes % (A) 2.8 %; MCH 31.5 pg (27.0-32.0); MCHC 32.4 g/dL (32.0-37.0); MCV 97.3 FL (80.0-97.0); Mean Platelet Volume 11.9 FL (9.5-12.2); Monocytes # (A) 0.35 X 10*3/uL (0.20-1.00); Monocytes % (A) 2.2 %; NRBC Per 100 WBC 0 X 10*3/uL (0.00-0.01); Neutrophils # (A) 14.59 X 10*3/uL (1.80-7.70); Neutrophils % (A) 93.7 %; Platelet Count 205 X 10*3/uL (140-440); RBC 2.98 X 10*6/uL (4.40-5.60); RDW 12.7 % (11.5-14.5); WBC 15.58 X 10*3/uL (4.50-10.00)
[2023-10-28 12:04] LABS: BUN/Creat Ratio 19.71 Ratio (12.00-20.00); Blood Urea Nitrogen 13.8 mg/dL (9.0-27.0); Calcium 7.5 mg/dL (8.7-10.3); Carbon Dioxide 30.9 mmol/L (21.6-31.8); Chloride 101 mmol/L (96-109); Glucose 135 mg/dL (70-110); Magnesium 1.8 mg/dL (1.5-2.4); Potassium 3.8 mmol/L (3.5-5.5); Sodium 141 mmol/L (135-145)
[2023-10-28 14:55] VITALS: BP 127/76; PULSE 87; TEMP 97.7
--- NOTE | 2023-10-28 15:09 | P.DS ---
Providers Date of admission: 10/24/23 13:46 Expected date of discharge: 10/28/23 Attending physician: Lurdes Riggs MD Consults: 10/24/23 13:42 Consult Physician Routine Consulting Provider: Stephanie Leiva Consult Reason/Comments: COPD/pneumonia Do you want consulting provider notified?: Yes Primary care physician: Stated None Hospital Course: Acute hypoxic respiratory failure: Sepsis secondary to community acquired PNA: Pseudomonas Acute on chronic COPD exacerbation: Upper GI bleed: Acute kidney injury: IV hydration as above. Gen: In NAD, non-toxic HEENT: normocephalic, atraumatic, hearing acuity is intant, mucous membranes moist CVS: perfusing all extremities well, no pitting edema, Respiratory: symmetric chest expansion, no accessory muscle use, quiet lung sounds GI: soft, NTTP, ND, : no suprapubic tenderness, no CVA tenderness MSK/Derm: no rashes, cyanosis Neuro: CN II-XII intact, no motor weakness, Psych: cooperative, euthymic mood, judgment and insight is intact Hospital course: 67 year old M with PMH of a history of COPD and heavy smoking history presents to the ED. Reports smoking 1.5 PPD for the last 50 years. He has progressively been feeling more short of breath and mostly home bound because of this. He has seen Dr. Camara many years back but has not followed up with a physician in years. Patient reports not being able to get out of his chair for weeks. Today, his caregiver found him covered in stool which prompted him to call EMS. Stool was noted to be black in color. In the ED he underwent extensive evaluation. BP 100/61, HR 135, RR 17, T 97.3F, 94% on RA. During the encounter, patient desaturated into the 70s on 3 L NC. CBC, coag panel, CMP was done significant for WBC count 14.9, PT 14.8, INR 1.4, BUN 45, creatinine 1.37, glucose 147, albumin 2.9. Lactic acid 3.1. CPK 51. Urinalysis 1+ ketone, moderate blood. Stool for occult blood positive. Troponin 0.015. Chest x-ray findings of COPD with left basilar infiltrate, ectasia dilation ascending aorta, apical pleural nodularity. EKG sinus tachycardia with ventricular rate of 133. Patient is admitted for COPD exacerbation and GI bleed. 3/19 Patient was seen and examined. Reports improvement in his breathing. CBC WBC 16.6 Hg 10.9 Hct 32.8. BMP Cl 110, bicarb 21, BUN 42, glu 153, Ca 7.6. D- Dimer 1.60. Lactic acid 1.7. Discussed with Dr. Leiva, continue management, plans for CTA chest. 10/25 Patient was seen and examined. Improved breathing. No further bowel movements. Discussed with Daniella FARFAN, plans for EGD today. Discussed with Dr. Roberts, patient will need home O2 and placement with outpatient follow up. CTA chest shows no PE, consolidation in the lung bases L > R with small to moderate left pleural effusion. CBC WBC 18.6 Hg 9.8 Hct 30.6. BMP Cl 109, BUN 29, glu 129, Ca 7.7. Iron 60. Ferritin 1305. Pro-mauro 0.74. Maintained on Rocephin 2g IV QD, completed 3 days of Azithromycin. 10/26-10/27: Pts hgb, oxygenation has remained stable. He was initially requesting d/c to rehab, but upon further discussion, he and his sister determined that he would go home with home care to her home. I spent 36 min coordinating this discharge on 10/27 Patient Condition at Discharge: Good Plan - Discharge Summary Discharge Rx Participant: No New Discharge Prescriptions: New Ciprofloxacin HCl [Cipro] 500 mg PO BID 6 Days #12 tab predniSONE [Deltasone] See Rx Instructions .ROUTE .COMPLEX #15 tab Budesonide-Formot 160-4.5 Mcg [Symbicort 160-4.5 Mcg Inhaler] 2 puff INHALATION BID #1 each Albuterol Inhaler [Ventolin Hfa Inhaler] 1 - 2 puff INHALATION Q6H PRN #1 each PRN Reason: Dyspnea Discharge Medication List Albuterol Inhaler [Ventolin Hfa Inhaler] 1 - 2 puff INHALATION Q6H PRN #1 each 10/28/23 [Rx] Budesonide-Formot 160-4.5 Mcg [Symbicort 160-4.5 Mcg Inhaler] 2 puff INHALATION BID #1 each 10/28/23 [Rx] Ciprofloxacin HCl [Cipro] 500 mg PO BID 6 Days #12 tab 10/28/23 [Rx] predniSONE [Deltasone] See Rx Instructions .ROUTE .COMPLEX #15 tab 10/28/23 [Rx] Follow up Appointment(s)/Referral(s): [facility] [NON-STAFF] - As Needed (oxygen) Nasim Srivastava MD [REFERRING] - 1 Week (Office is not answering at time of discharge. Please call for follow-up appointment.) Shannan Busby MD [STAFF PHYSICIAN] - 1 Week (Office is closed at time of discharge. Please call for follow-up appointment.) None,Stated [Primary Care Provider] - 1-2 days Patient Instructions/Handouts: Using Oxygen at Home (DC) Discharge Disposition: HOME WITH HOME HEALTH SERVICES
--- NOTE | 2023-10-28 16:26 | P.PN ---
Subjective Progress Note Date: 10/28/23 Nothing else this is a 68-year-old male patient, known history of COPD who quit smoking back in 2018. Nevertheless, the patient advanced bullous emphysema. He used to follow-up with Dr. ESTEFANY Camara in the past and he stopped all medical care and he has not seen a physician for quite some time. He has been living at home and he got to a point where it became very difficult to take care of himself. Currently is unable to move and walk more than few feet. Apparently, he has not gotten out of his chair for several weeks he has not been eating or drinking. He was getting food brought to him in the past. His friend came in to check on him today and he was found to be very weak, debilitated and covered in stools and based on that, EMS was called to the scene and the patient was brought into the hospital. The patient denies having any acute worsening in shortness of breath. He has a chronic cough and congestion and wheeze. He has quit using his respiratory medication for several years. No reported aspiration. 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 I was able to retrieve his old CAT scan of the chest from 2019 and back then the patient was found to have bullous emphysema with upper lobe predominance and his emphysema was quite advanced. There was also areas of scarring specially in the apices bilaterally. No evidence of any malignancy back then. The repeat chest x-ray that was done in the emergency department today showed COPD with some left ba silar infiltration and small effusion. He had ectasia of the ascending aorta along with chronic stable pleural nodular changes and scarring that were present and unchanged since 2019. The patient is has been in a very poor living condition. He also tells me that he is going to be evicted from his apartment. He has no chest pain. No edema lower extremities. No palpitation. Denies having any previous history of cardiac disease. The white cell count of 14.9 with hemoglobin 13.8 and a platelet count of 369. INR is 1.4 with a PT of 14.8. Lactic acid level at time of admission was 3.1. BUN was 45 with a creatinine of 1.37 and sodium levels of 139. UA showing +1 ketones, occult stool was positive. The patient was started on IV Rocephin. The patient was started on albuterol nebulized treatments [id number]. The viral panel has not been done. On today's evaluation of 10/25/2023, the patient's condition is stable. No new complaints. Repeat chest x-ray was done today and the patient was found to have stable findings with lower lobe pulm infiltrates and small left-sided pleural effusion along with background COPD. Questionable right upper lobe nodule versus scarring. The patient remains on IV Rocephin. Remains on IV Solu- Medrol. Remains on DuoNeb updrafts. Receiving IV fluids. The white cell count is 16.6 with a hemoglobin of 10.9. D-dimer was at 1.6. BUN is at 42 with a creatinine of 1 and there is improvement in the renal function. Serum bicarb is at 21 with a sodium level of 137. Troponins are negative. No evidence of any GI bleeding. Hemoglobin has dropped down to 10.9, could be dilutional. On today's evaluation of 10/26/2023, the patient is being seen for a follow-up. The patient is feeling essentially stable. No interval worsening shortness of breath. He remains on 5 L of oxygen by nasal cannula. CTA of the chest was done yesterday that showed no evidence of any pulmonary embolism. There was extensive bullous emphysema with upper lobe predominance noted on the CAT scan of the chest and there was a small left-sided pleural effusion and a trace right-sided pleural effusion along with some patchy masslike consolidation involving the right lower lobe and the right midlung area. Suspect pneumonia. The patient remains on IV Rocephin. Remains on IV Solu-Medrol. Remains on DuoNeb updrafts. Suspect GI bleed and the patient is going to undergo an EGD today. Hemoglobin is stable at 9.8, slightly dropped from yesterday with a wh ite cell count of 18.6 and a platelet count of 239. BUN is 29 with a creatinine of 0.88 and a sodium levels at 139. Currently n.p.o. awaiting an EGD On today's evaluation of 10/27/2023, the patient is resting comfortably in bed. Oxygen requirements improved compared to yesterday and the patient is currently on 2 L of O2 nasal cannula. The patient had a CT angiogram that showed evidence of any pulm embolism and the patient remains on IV Rocephin. No other new complaints otherwise for now. Resting comfortably in bed. Remains on DuoNeb updrafts, remains on IV Solu-Medrol and the patient is also covered IV cefepime as the patient did not have Pseudomonas in his sputum. The blood cultures are negative thus far. On a separate note, the patient underwent an EGD yesterday and the patient was found to have 5 mm and 1 cm clean-based ulcers in the antrum of the stomach. Mild gastritis and duodenitis. Small hiatal hernia and the patient remains on PPI. Hemoglobin t from yesterday was at 9.8. White cell count at 18.6. No new labs are available from today. On today's evaluation of 10/28/2023, the patient is resting comfortably in bed. No specific complaints. He has been weaned down to 2 L of oxygen by nasal cannula. Remains on DuoNeb updrafts and IV Solu-Medrol regarding his COPD exacerbation. CTA of the chest was negative and the patient was initially started on Rocephin and subsequently antibiotics has been switched to cefepime as the patient was found to have Pseudomonas aeruginosa on sputum. He has no new complaints otherwise for now. White cell count of 15.8 with a hemoglobin 9.4 and a platelet count of 205. Rest of the electrolytes are all within normal limits. Objective - Vital Signs Vital signs: Vital Signs Temp 97.7 F 10/28/23 13:25 Pulse 87 10/28/23 13:25 Resp 18 10/28/23 13:25 BP 127/76 10/28/23 13:25 Pulse Ox 99 10/28/23 13:25 FiO2 Intake & Output 10/27/23 10/28/23 10/28/23 18:59 06:59 18:59 Intake Total 650 950 Output Total 200 Balance 450 950 Intake: Intake, IV Titration 100 Amount Cefepime 2 gm In Sodium 100 Chloride 0.9% 100 ml @ 25 mls/hr IVPB Q8HR [facility] Rx# :[id number] Oral 550 950 Output: Urine 200 Stool 0 Other: Voiding Method Urinal Urinal # Voids 3 3 - Exam Debilitated, cachectic and weak, in a very poor hygienic state and not in acute respiratory distress. Awake and alert and communicating. The patient is currently on 2 L of O2 nasal cannula Head exam was generally normal. There was no scleral icterus or corneal arcus. Mucous membranes were moist. Neck was supple and without jugular venous distension, thyromegaly, or carotid bruits. Carotids were easily palpable bilaterally. There was no adenopathy. Lung sounds are diminished bilaterally and the patient has minimal in the lung bases bilaterally. Scant expiratory wheezes. He has a barrel chest. Heart sounds are tachycardic, regular, positive S1-S2 and there is no significant murmurs appreciated and the patient's heart sounds are distant. Abdominal exam revealed normal bowel sounds. The abdomen was soft, non-tender, and without masses, organomegaly, or appreciable enlargement of the abdominal aorta. Examination of the extremities revealed easily palpable radial, femoral and pedal pulses. There was no cyanosis, clubbing or edema. Examination of the extremities revealed easily palpable radial, femoral and pedal pulses. There was no cyanosis, clubbing or edema. examination of the skin revealed no evidence of significant rashes, suspicious appearing nevi or other concerning lesions. Neurologically, the patient is katrina ke and alert and the patient does not have any focal neurological deficit. Cranial nerves are essentially intact. - Labs CBC & Chem 7: 10/28/23 06:41 10/28/23 06:41 Labs: Abnormal Lab Results - Last 24 Hours (Table) 10/27/23 10/28/23 10/28/23 Range/Units 20:41 06:41 06:41 WBC 15.58 H (4.50-10.00) X 10*3/uL RBC 2.98 L (4.40-5.60) X 10*6/uL Hgb 9.4 L (13.0-17.0) g/dL Hct 29.0 L (39.6-50.0) % MCV 97.3 H (80.0-97.0) FL Immature Gran # 0.17 H (0.00-0.04) X 10*3/uL Neutrophils # 14.59 H (1.80-7.70) X 10*3/uL Lymphocytes # 0.43 L (0.90-5.00) X 10*3/uL Eosinophils # 0.02 L (0.04-0.35) X 10*3/uL Glucose 135 H (70-110) mg/dL POC Glucose (mg/dL) 169 H (70-110) mg/dL Calcium 7.5 L (8.7-10.3) mg/dL Microbiology - Last 24 Hours (Table) 10/24/23 13:21 Blood Culture - Preliminary Blood 10/24/23 13:00 Blood Culture - Preliminary Blood 10/24/23 22:00 Gram Stain - Final Sputum Sputum Culture - Final Pseudomonas aeruginosa Assessment and Plan Plan: Acute hypoxic respiratory failure and he is on 02 at 2 L/min nasal cannula, this is multifactorial. The patient advanced bullous emphysema with suspected superinfection/pneumonia. The patient has small bilateral pleural effusions worse on the left and patchy areas of masslike consolidations which could be potentially malignancy versus infection versus scarring. The sputum was positive for Pseudomonas. Rule out pseudomonal pneumonia Pseudomonal left lower lobe pneumonia, currently on IV cefepime COPD exacerbation, currently on bronchodilators steroids and antibiotics and the patient is currently on IV Rocephin, D-dimer is mildly elevated. CTA shows no evidence of any PE. Advanced bullous emphysema, with diffuse emphysematous change in the upper lobes bilaterally along with apical scarring Left lower lobe pulm infiltrate and effusion, new finding compared with previous x-ray from 2019. This has been also confirmed by the CAT scan of the chest Acute dehydration, essentially due to diminished oral intake, improving Acute lactic acidosis Acute leukocytosis likely secondary to above, improving Anemia with a positive occult blood in the stool. EGD was completed and the results were noted Mild coagulopathy with INR of 1.4, could be dietary and nutritional Acute kidney injury, improving, and the creatinine is normalized Sinus tachycardia secondary to above, improving Poor living conditions, unable to take care of himself Gastric antral ulcers nonbleeding measuring 5 and 10 mm in size and the patient also has some mild antral gastritis and duodenitis Plan Clinically stable and improved CT of the chest will be obtained and the results were noted. Sputum sample cultures were noted and is positive for Pseudomonas aeruginosa Patient was started on IV cefepime Titrate oxygen flow to maintain saturation above 90%, currently on 2 L of O2 nasal cannula Continue albuterol/ipratropium nebulized treatments [id number] 4 times a day IV Solu-Medrol 60 mg every 6 hours, will start tapering steroids as of tomorrow The patient will be evaluated for home O2 The patient can be switched to ciprofloxacin at time of discharge Prednisone burst taper at time of discharge Home O2 at time of discharge Home nebulizer at time of discharge Overall condition is stable and the long-term prognosis poor based on the presence of advanced lung disease. Recommended total of 7-day course of antibiotics with ciprofloxacin at the time of his discharge.
--- NOTE | 2023-10-31 19:37 | CDI ---
Documentation Clarification Form Date: 10/31/2023 07:20:43 PM From: Estelita Coronado Phone: Admit Date: 10/24/2023 01:46:00 PM Patient Name: Valentino Tran Visit Number: [id number] Discharge Date: 10/28/2023 04:24:00 PM ATTENTION: The Clinical Documentation Specialists (CDI) and [facility] Coding Staff appreciate your assistance in clarifying documentation. Please respond to the clarification below the line at the bottom and electronically sign. The CDI & [facility] Coding staff will review the response and follow-up if needed. Please note: Queries are made part of the Legal Health Record. If you have any questions, please contact the author of this message via ITS. Dr. Lurdes Riggs Poor nutrition is documented per Consult Note 10/24 and Progress Note 10/26. Based on this information and the findings below, is there an additional diagnosis that is clinically appropriate for this patient? History/Risk Factors: 68yo M, Sepsisd/t Pseudomonasaeruginosa PNA, AHRF, AECOPD, GIB, advancedbullous emphysema, dehydration, acutelactic acidosis, acuteleukocytosis, KAEL, sinus tachycardia, poor living conditions,unableto care for self. Clinical Indicators: Current BMI: 19.5 Debilitated,cachecticandweak; Patient states that he has not gotten up out of his chair in several weeks he states has not been eating or drinking. Patient was initially gettingfoodbrought to him. Pt hasnot followed up with a physician in years. Mildcoagulopathywith INR of 1.4, could be dietary and nutritional Treatment: monitored Is there an additional diagnosis that is clinically appropriate for this patient? [ ] Mild Protein-Calorie Malnutrition [ ] Moderate Protein-Calorie Malnutrition [ x] Severe Protein-Calorie Malnutrition [ ] No additional diagnosis/Not clinically significant [ ] Other condition, please specify [ ] Unable to Determine (Template Last Revised: February 2023) MTDD
--- NOTE | 2023-10-31 19:50 | CDI ---
Documentation Clarification Form Date: 10/31/2023 07:38:00 PM From: Estelita Coronado Phone: Admit Date: 10/24/2023 01:46:00 PM Patient Name: Valentino Tran Visit Number: [id number] Discharge Date: 10/28/2023 04:24:00 PM ATTENTION: The Clinical Documentation Specialists (CDI) and [facility] Coding Staff appreciate your assistance in clarifying documentation. Please respond to the clarification below the line at the bottom and electronically sign. The CDI & [facility] Coding staff will review the response and follow-up if needed. Please note: Queries are made part of the Legal Health Record. If you have any questions, please contact the author of this message via ITS. Dr. Lurdes Riggs Patient states that he has kidney disease,diabetes is documented per ED Note. Additional specificity regarding the diabetes diagnosis is requested. History/Risk Factors: 68yo M, Sepsis d/t Pseudomonas aeruginosa PNA, AHRF, AECOPD, GIB, advanced bullous emphysema, dehydration, acute lactic acidosis, acute leukocytosis, KAEL, sinus tachycardia, poor living conditions, unable to care for self Clinical Indicators: Glucose: 10/23 147 10/24 153 10/25 129 10/26 147 10/27 135-169 BUN: 45 Cr: 1.37 Est GFR AfAm: 61 Est GFR NonAf: 52 Treatment: monitored He states has not been on medication for a long period of time. Please clarify the validity of diabetes: [ ] Diabetes Type 2 ruled out [ ] Diabetes Type 2 with [ ] Chronic Kidney Disease [ ] Hyperglycemia [ ] Other, please specify [x ] Unable to Determine (Template Last Revised: October 2020) MTDD
== END 2023-10-28 16:24 | disposition home health service (06) | DRG 871 ==
LOC: EC 10:23 → 4SSUR 13:46
PROVIDERS: ADMIT Family Medicine; ATTEND Family Medicine
PROC: 0DB78ZX Excision of Stomach, Pylorus, Via Natural or Artificial Opening Endoscopic, Diagnostic (ICD-10-PCS; principal; 2023-10-26 13:55)
DX: A41.52 Sepsis due to Pseudomonas (principal); D65 Disseminated intravascular coagulation [defibrination syndrome]; J96.01 Acute respiratory failure with hypoxia; J15.1 Pneumonia due to Pseudomonas; K25.4 Chronic or unspecified gastric ulcer with hemorrhage; K29.81 Duodenitis with bleeding; K29.51 Unspecified chronic gastritis with bleeding; K57.31 Diverticulosis of large intestine without perforation or abscess with bleeding; E43 Unspecified severe protein-calorie malnutrition; N17.9 Acute kidney failure, unspecified; J44.1 Chronic obstructive pulmonary disease with (acute) exacerbation; E87.21 Acute metabolic acidosis; Z68.1 Body mass index [BMI] 19.9 or less, adult; J91.8 Pleural effusion in other conditions classified elsewhere; I77.810 Thoracic aortic ectasia; Z66 Do not resuscitate; E86.0 Dehydration; K44.9 Diaphragmatic hernia without obstruction or gangrene; K20.90 Esophagitis, unspecified without bleeding; D12.5 Benign neoplasm of sigmoid colon; E88.A Wasting disease (syndrome) due to underlying condition; R91.1 Solitary pulmonary nodule; Z74.2 Need for assistance at home and no other household member able to render care; Z77.090 Contact with and (suspected) exposure to asbestos; Z91.198 Patient's noncompliance with other medical treatment and regimen for other reason; R53.81 Other malaise; Z59.89 Other problems related to housing and economic circumstances; Z87.891 Personal history of nicotine dependence
CPT/HCPCS: 36415; 43239; 71046; 71275; 80048; 80053; 81001; 82272; 82550; 82728; 83540; 83550; 83605; 83735; 84145; 84484; 85025; 85027; 85379; 85610; 85730; 86850; 86900; 86901; 87040; 87070; 87077; 87186; 87205; 87449; 88305; 88342; 93005; 94760; 96361; 96365; 96366; 96367; 96375; 96376; 99285